=== PATIENT | male | born 1960 | race Caucasian/White ===

== ENCOUNTER → 2016-04-02 | Outpatient (CLI) | payer BC ==
--- NOTE | 2016-04-02 15:25 | Diagnostic Imaging Report ---
INDICATION: Right posterior knee pain. FINDINGS: Three views of the right knee show no fracture, dislocation or appreciable joint effusion. IMPRESSION: Negative right knee. Dictated by: Dictated on workstation # [id number]
== END ==
LOC: RAD 14:15
PROVIDERS: ATTEND Family Medicine
DX: M25.561 Pain in right knee (principal)
CPT/HCPCS: 73562

== ENCOUNTER 2017-09-01 18:39 | Emergency (ER) | payer BC ==
[~2017-09-01] VITALS: Ht 177.8 cm; Wt 90.7 kg
--- NOTE | 2017-09-01 18:57 | ED Fall/Injury ---
General Chief Complaint: Back Problems Stated Complaint: BACK/ RIB PAIN R SIDE AFTER FALL Source: patient Exam Limitations: no limitations History of Present Illness Date Seen by Provider: Sep 01, 2017 Time Seen by Provider: 18:44 Initial Comments PT ARRIVES VIA POV FROM HOME PT STATES HE IS REMODELING HIS KITCHEN, AND STEPPED ON A BOARD AND IT GAVE WAY, AND HE FELL, LANDING ON HIS RIGHT SIDE, HITTING HIS RIGHT POSTERIOR RIB AREA ON A FLOOR JOIST--DID NOT FALL THROUGH THE FLOOR, OR FROM A HEIGHT--FELL FROM STANDING POSITION ONTO A FLOOR JOIST OCCURRED AT 1500 TODAY NO SHORTNESS OF BREATH, JUST HURTS TO BREATHE WHEN HE LAYS DOWN, OR WITH TWISTING OR CERTAIN POSITIONS NO CHEST PAIN NO ABDOMINAL PAIN NO SPINE PAIN DID NOT HIT HEAD AND NO LOSS OF CONSCIOUSNESS NO EXTREMITY PAIN NO PARESTHESIAS OR MOTOR DEFICITS NO OPEN WOUNDS OR BRUISING HAS NOT TAKEN ANYTHING FOR PAIN Allergies and Home Medications Allergies Coded Allergies: No Known Drug Allergies (Unverified , 04/13/11) Home Medications Cyclobenzaprine HCl 10 Mg Tablet, 10 MG PO Q8H Prescribed by: JESSY VILLALOBOS on 09/01/171930 Meloxicam 15 Mg Tablet, 15 MG PO DAILY Prescribed by: JESSY VILLALOBOS on 09/01/171930 Tramadol HCl 50 Mg Tablet, 50 MG PO Q4H Prescribed by: JESSY VILLALOBOS on 09/01/171930 Patient Home Medication List Home Medication List Reviewed: Yes Review of Systems Constitutional: no symptoms reported Eyes: No Symptoms Reported Ears, Nose, Mouth, Throat: no symptoms reported Respiratory: no symptoms reported Cardiovascular: no symptoms reported Gastrointestinal: no symptoms reported Genitourinary: no symptoms reported Musculoskeletal: see HPI Skin: no symptoms reported Psychiatric/Neurological: No Symptoms Reported Past Svoxvqs-Gekfsc-Lhbfgb Hx Patient Social History Alcohol Use: Occasionally Uses Recreational Drug Use: No Smoking Status: Current Someday Smoker Type Used: Cigarettes Recent Foreign Travel: No Contact w/Someone Who Travel: No Recent Hopitalizations: No Immunizations Up To Date Tetanus Booster (TDap): Unknown Seasonal Allergies Seasonal Allergies: No Past Medical History Surgeries: No Respiratory: No Cardiac: No Neurological: No Genitourinary: No Gastrointestinal: No Musculoskeletal: No Endocrine: No HEENT: No Cancer: No Psychosocial: No Integumentary: No Blood Disorders: No Physical Exam Vital Signs Vital Signs - First Documented 09/01/17 18:49 Temp 97.8 Pulse 70 Resp 16 B/P (MAP) 152/97 (115) Pulse Ox 98 O2 Delivery Room Air Capillary Refill : General Appearance: WD/WN HEENT: PERRL/EOMI Neck: non-tender, full range of motion, supple, normal inspection Cardiovascular: normal peripheral pulses, regular rate, rhythm, no edema, no JVD, no murmur Respiratory: normal breath sounds, no respiratory distress, no accessory muscle use, other (TENDERNESS TO RIGHT POSTERIOR RIB AREA, JUST BELOW SCAPULA -- NO EXTERNAL EVIDENCE OF TRAUMA) Gastrointestinal: normal bowel sounds, non tender, soft, no organomegaly, no pulsatile mass Back: no vertebral tenderness, CVA tenderness (R); No decreased range of motion , No muscle spasm, No vertebral tenderness Extremities: normal range of motion, non-tender, normal inspection, no pedal edema, no calf tenderness, normal capillary refill 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, no motor/sensory deficits, alert, normal mood/affect, oriented x 3 Skin: normal color, warm/dry; No ecchymosis [place] Coma Score Best Eye Response: (4) Open Spontaneously Best Verbal Response: (5) Oriented Best Motor Response: (6) Obeys Commands Art Total: 15 Progress/Results/Core Measures Results/Orders My Orders Orders - JESSY VILLALOBOS DO Chest Pa/Lat (2 View) (09/01/17 18:50) Ribs, Right 2-3 Views (09/01/17 18:50) Vital Signs/I&O 09/01/17 09/01/17 18:49 19:37 Temp 97.8 97.8 Pulse 70 70 Resp 16 16 B/P (MAP) 152/97 (115) 152/97 (115) Pulse Ox 98 98 O2 Delivery Room Air Progress Progress Note : Progress Note PT DECLINES ANY PAIN MEDICATIONS IN ER. Diagnostic Imaging Comments CXR / RIGHT RIBS--NO ACUTE PROCESS, PER RADIOLOGIST REPORT @ 1925 Reviewed: Reviewed by Me Departure Impression Primary Impression: RIGHT RIB/CHEST WALL CONTUSION Additional Impression: S/P FALL FROM STANDING POSITION Disposition: 01 HOME, SELF-CARE Condition: Stable Departure-Patient Inst. Referrals: DAMIEN WILEY MD (PCP/Family) Primary Care Physician Patient Instructions: Bruised Rib (DC), RIB CONTUSION Add. Discharge Instructions: ICE TO SORE AREA AT 20 MINUTE INTERVALS FOR FIRST 2 DAYS, THEN ALTERNATE ICE AND HEAT AT 20 MINUTE INTERVALS NEEDED FOR PAIN ACTIVITIES TOLERATED FOLLOW UP WITH YOUR DR IN 7-10 DAYS IF NO BETTER RETURN TO ER IF WORSE All discharge instructions reviewed with patient and/or family. Voiced understanding. Scripts Tramadol HCl (Ultram) 50 Mg Tablet 50 MG PO Q4H, #20 TAB Prov: JESSY VILLALOBOS DO 09/01/17 Meloxicam (Mobic) 15 Mg Tablet 15 MG PO DAILY, #10 TAB Prov: JESSY VILLALOBOS DO 09/01/17 Cyclobenzaprine HCl (Cyclobenzaprine HCl) 10 Mg Tablet 10 MG PO Q8H, #15 TAB Prov: JESSY VILLALOBOS DO 09/01/17 JESSY VILLALOBOS DO Sep 01, 2017 18:57
--- NOTE | 2017-09-01 19:18 | Diagnostic Imaging Report ---
INDICATION: Fall, right rib pain. EXAMINATION: Two-view chest dated 09/01/2017. COMPARISON: 09/05/2014. FINDINGS: No displaced rib fracture is noted. No pneumothorax is seen. Lungs clear with no infiltrates or effusions. IMPRESSION: 1. No acute process. If pain persists, perhaps a rib series could better evaluate the osseous structures; however, no pneumothorax appreciated. Dictated by: Dictated on workstation # [id number]
--- NOTE | 2017-09-01 19:21 | Diagnostic Imaging Report ---
INDICATION: Patient fell on right ribs. Pain. EXAMINATION: Right rib series, 09/01/2017. FINDINGS: Three views of the right ribs. No displaced rib fractures appreciated. There is no pneumothorax. Remaining visualized osseous structures intact. IMPRESSION: 1. Unremarkable examination. Dictated by: Dictated on workstation # [id number]
[2017-09-01] MEDS ORDERED: TRAM-42 PO (19:31)
[2017-09-01] MEDS ORDERED: CYCL10TA9 PO (19:31)
[2017-09-01] MEDS ORDERED: MELO15TA14 PO (19:31)
[2017-09-01 19:37] VITALS: BP 152/97
== END 2017-09-01 19:37 | disposition home or self-care (01) ==
LOC: EDUNIT# 18:39 → ER 18:40
DX: S20.211A Contusion of right front wall of thorax, initial encounter (principal); R40.2142 Coma scale, eyes open, spontaneous, at arrival to emergency department; R40.2252 Coma scale, best verbal response, oriented, at arrival to emergency department; R40.2362 Coma scale, best motor response, obeys commands, at arrival to emergency department; F17.210 Nicotine dependence, cigarettes, uncomplicated; W18.31XA Fall on same level due to stepping on an object, initial encounter
CPT/HCPCS: 71046; 71100

== ENCOUNTER → 2018-11-27 | Outpatient (CLI) | payer BC ==
[~2018-11-27] MED LIST: CYCL10TA9 PO; MELO15TA14 PO; TRAM-42 PO
--- NOTE | 2018-11-27 15:12 | Diagnostic Imaging Report ---
PROCEDURE: US right lower extremity venous. TECHNIQUE: Multiple real-time grayscale images were obtained over the right lower extremity in various projections. Additional spectral analysis and color Doppler duplex images were also obtained. INDICATION: Pain and swelling. FINDINGS: There are no prior studies available for comparison. There is generally good blood flow and compressibility within the common femoral and superficial femoral veins; however, there is thrombosis of the popliteal vein. The posterior tibial and peroneal veins seem patent. IMPRESSION: 1. There is thrombus formation within the popliteal vein. 2. The remainder of the deep venous system is unremarkable for thrombus formation. 3. These results were called to Dr. Murphy by our sonologist. Dictated by: Dictated on workstation # [id number]
== END ==
LOC: RAD 14:10
PROVIDERS: ATTEND Family Medicine
DX: I82.431 Acute embolism and thrombosis of right popliteal vein (principal)

== ENCOUNTER 2018-12-04 16:18 | Emergency (ER) | payer BC ==
[~2018-12-04] VITALS: Ht 180.3 cm; Wt 93.1 kg
[2018-12-04] MEDS ORDERED: NS IV 1000 ML 1,000 ML IV ONE (16:52)
[2018-12-04 16:58] LABS: BASOPHILS % (AUTO) 0 % (0-10); EOSINOPHILS # (AUTO) 0.2 10^3/uL (0.0-0.3); EOSINOPHILS % (AUTO) 2 % (0-10); HEMATOCRIT 44 % (40-54); HEMOGLOBIN 15.3 G/DL (13.3-17.7); LYMPHOCYTES # (AUTO) 2.9 X 10^3 (1.0-4.0); LYMPHOCYTES % (AUTO) 31 % (12-44); MEAN CORPUSCULAR HEMOGLOBIN 32 PG (25-34); MEAN CORPUSCULAR HGB CONC 35 G/DL (32-36); MEAN CORPUSCULAR VOLUME 91 FL (80-99); MEAN PLATELET VOLUME 9.2 FL (7.4-10.4); MONOCYTES # (AUTO) 0.9 X 10^3 (0.0-1.0); MONOCYTES % (AUTO) 10 % (0-12); NEUTROPHILS # (AUTO) 5.3 X 10^3 (1.8-7.8); NEUTROPHILS % (AUTO) 57 % (42-75); PLATELET COUNT 328 10^3/uL (130-400); RED CELL DISTRIBUTION WIDTH 12.8 % (10.0-14.5); WHITE BLOOD COUNT 9.2 10^3/uL (4.3-11.0)
--- NOTE | 2018-12-04 17:02 | ED General ---
General Chief Complaint: Dizziness/Syncope Stated Complaint: DIZZY Nursing Triage Note: Pt to ED via EMS with c/o dizziness and weakness. Pt reports driving when symptoms occured. Pt went to [facility] and called EMS. Pt reports being diagnosed with a DVT behind the R knee last week. Pt denies pain at this time but reports pain in the R peters earlier in the day. EMS reports blood sugar of 99 and blood pressure of 169/103. Pt reports taking xarelto. Nursing Sepsis Screen: No Definite Risk Source of Information: Patient Exam Limitations: No Limitations History of Present Illness Date Seen by Provider: Dec 04, 2018 Time Seen by Provider: 16:45 Initial Comments Here with report of feeling off, shaky, weak and lightheaded. He apparently has recent history of right DVT and was started on Xarelto. He has been on that for a week and takes it as directed. Denies chest pain or breathing problems. Apparently he had tried to go to his doctor's office which was closed. He then decided to drive home and the weakness and lightheadedness hit. He pulled over and EMS was called and brought him here. Denies shortness of breath that is slightly tachycardic. 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 Did have pain in his right leg that suddenly stopped right before the lightheadedness began. Timing/Duration: 1 Hour Severity: Moderate Associated Systoms: No Chest Pain, No Fever/Chills, No Nausea/Vomiting, No Shortness of Air; Weakness Allergies and Home Medications Allergies Coded Allergies: No Known Drug Allergies (Unverified , 04/13/11) Home Medications Cyclobenzaprine HCl 10 Mg Tablet, 10 MG PO Q8H Prescribed by: JESSY VILLALOBOS on 09/01/171930 Meloxicam 15 Mg Tablet, 15 MG PO DAILY Prescribed by: JESSY VILLALOBOS on 09/01/171930 Tramadol HCl 50 Mg Tablet, 50 MG PO Q4H Prescribed by: JESSY VILLALOBOS on 09/01/171930 Patient Home Medication List Home Medication List Reviewed: Yes Review of Systems Review of Systems Constitutional: see HPI; No chills, No fever; weakness EENTM: no symptoms reported Respiratory: no symptoms reported Cardiovascular: see HPI; No syncope Gastrointestinal: No abdominal pain, No nausea, No vomiting Genitourinary: no symptoms reported Musculoskeletal: see HPI, muscle pain; No muscle stiffness, No muscle cramps Skin: no symptoms reported Psychiatric/Neurological: See HPI Hematologic/Lymphatic: See HPI, Blood Clots All Other Systems Reviewed Negative Unless Noted: Yes Past Kztcjrw-Nvvxud-Ssmsys Hx Past Med/Social Hx: Reviewed Nursing Past Med/Soc Hx Patient Social History Alcohol Use: Occasionally Uses Recreational Drug Use: No Type Used: Smokeless Tobacco Recent Foreign Travel: No Contact w/Someone Who Travel: No Recent Infectious Disease Expo: No Recent Hopitalizations: No Physical Abuse: No Sexual Abuse: No Immunizations Up To Date Tetanus Booster (TDap): Unknown Seasonal Allergies Seasonal Allergies: No Past Medical History Surgeries: No Respiratory: No Cardiac: No Neurological: No Genitourinary: No Gastrointestinal: No Musculoskeletal: No Endocrine: No HEENT: No Cancer: No Psychosocial: No Integumentary: No Blood Disorders: No Family Medical History Reviewed Nursing Family Hx Physical Exam Vital Signs Vital Signs - First Documented 12/04/18 16:20 Temp 36.6 Pulse 96 Resp 21 B/P (MAP) 168/116 (133) Pulse Ox 98 O2 Delivery Room Air Capillary Refill : Less Than 3 Seconds Height, Weight, BMI Height: 5'10.00" Weight: 200lbs. 0.0oz. 90.830442tl; 28.00 BMI Method:Stated General Appearance: No Apparent Distress, WD/WN HEENT: PERRL/EOMI, Pharynx Normal Neck: Non Tender, Supple Respiratory: Lungs Clear, Normal Breath Sounds Cardiovascular: No Murmur, Tachycardia Gastrointestinal: Non Tender, Soft Back: Normal Inspection, No CVA Tenderness, No Vertebral Tenderness Extremity: Normal Range of Motion, Non Tender Neurologic/Psychiatric: Alert, Oriented x3 Skin: Normal Color, Warm/Dry Progress/Results/Core Measures Suspected Sepsis Recent Fever Within 48 Hours: No Infection Criteria Present: None New/Unexplained Altered Menta: No Sepsis Screen: No Definite Risk SIRS Temperature: Pulse: 96 Respiratory Rate: 21 Laboratory Tests 12/04/18 16:20: White Blood Count 9.2 Blood Pressure 168 /116 Mean: 133 Laboratory Tests 12/04/18 16:20: Creatinine 1.19, Platelet Count 328, Total Bilirubin 0.4 Results/Orders Lab Results Laboratory Tests Test 12/04/18 16:20 Range/Units White Blood Count 9.2 4.3-11.0 10^3/uL Red Blood Count 4.79 4.35-5.85 10^6/uL Hemoglobin 15.3 13.3-17.7 G/DL Hematocrit 44 40-54 % Mean Corpuscular Volume 91 80-99 FL Mean Corpuscular Hemoglobin 32 25-34 PG Mean Corpuscular Hemoglobin Concent 35 32-36 G/DL Red Cell Distribution Width 12.8 10.0-14.5 % Platelet Count 328 130-400 10^3/uL Mean Platelet Volume 9.2 7.4-10.4 FL Neutrophils (%) (Auto) 57 42-75 % Lymphocytes (%) (Auto) 31 12-44 % Monocytes (%) (Auto) 10 0-12 % Eosinophils (%) (Auto) 2 0-10 % Basophils (%) (Auto) 0 0-10 % Neutrophils # (Auto) 5.3 1.8-7.8 X 10^3 Lymphocytes # (Auto) 2.9 1.0-4.0 X 10^3 Monocytes # (Auto) 0.9 0.0-1.0 X 10^3 Eosinophils # (Auto) 0.2 0.0-0.3 10^3/uL Basophils # (Auto) 0.0 0.0-0.1 10^3/uL Sodium Level 139 135-145 MMOL/L Potassium Level 5.4 H 3.6-5.0 MMOL/L Chloride Level 107 98-107 MMOL/L Carbon Dioxide Level 24 21-32 MMOL/L Anion Gap 8 5-14 MMOL/L Blood Urea Nitrogen 15 7-18 MG/DL Creatinine 1.19 0.60-1.30 MG/DL Estimat Glomerular Filtration Rate > 60 BUN/Creatinine Ratio 13 Glucose Level 95 70-105 MG/DL Calcium Level 8.9 8.5-10.1 MG/DL Corrected Calcium 8.8 8.5-10.1 MG/DL Total Bilirubin 0.4 0.1-1.0 MG/DL Aspartate Amino Transf (AST/SGOT) 47 H 5-34 U/L Alanine Aminotransferase (ALT/SGPT) 25 0-55 U/L Alkaline Phosphatase 109 40-136 U/L Troponin I < 0.028 <0.028 NG/ML Total Protein 8.0 6.4-8.2 GM/DL Albumin 4.1 3.2-4.5 GM/DL My Orders Orders - SHANE LEHMAN MD Ct Angio Chest W (12/04/18 16:52) Chest 1 View, Ap/Pa Only (12/04/18 16:52) Cbc With Automated Diff (12/04/18 16:52) Comprehensive Metabolic Panel (12/04/18 16:52) Troponin I (12/04/18 16:52) Ed Iv/Invasive Line Start (12/04/18 16:52) Ns Iv 1000 Ml (Sodium Chloride 0.9%) (12/04/18 16:52) Ekg Tracing (12/04/18 16:52) Iohexol Injection (Omnipaque 350 Mg/Ml 1 (12/04/18 17:30) Received Contrast (Hold Metformin- Contr (12/04/18 17:30) Ns (Ivpb) (Sodium Chloride 0.9% Ivpb Bag (12/04/18 17:30) Medications Given in ED Current Medications Medications Dose Ordered Sig/Kemi Route Start Time Stop Time Status Last Admin Dose Admin Iohexol 100 ml ONCE ONCE IV 12/04/18 17:30 12/04/18 17:31 DC 12/04/18 17:52 100 ML Sodium Chloride 100 ml ONCE ONCE IV 12/04/18 17:30 12/04/18 17:31 DC 12/04/18 17:52 80 ML Sodium Chloride 1,000 ml @ 0 mls/hr Q0M ONCE IV 12/04/18 16:52 12/04/18 16:54 DC 12/04/18 17:02 1,000 MLS/HR Vital Signs/I&O 12/04/18 16:20 Temp 36.6 Pulse 96 Resp 21 B/P (MAP) 168/116 (133) Pulse Ox 98 O2 Delivery Room Air Capillary Refill : Less Than 3 Seconds Blood Pressure Mean: 133 Progress Note : Progress Note Seen and evaluated. IV, labs, will saline 1 L bolus, chest x-ray, EKG and CT angiogram of the chest ordered. Monitor patient. 1809: CT angiogram completed and reviewed with the patient. I also discussed it with Dr. Wiley. He does have bilateral small to moderate lower pulmonary embolisms. Overall patient is feeling much better now and is walking without dizziness. Heart rate in the 60s to 70s. We did discuss at length regarding continuing Xarelto or switching the Eliquis. At this point we will go ahead and continue Xarelto. will see him tomorrow. I will send a copy of the chart to him. Patient is not hypoxic. He is a little hypertensive currently but this may be related to anxiety. He can have that rechecked at the office tomorrow as well. Discharged home with return precautions. Patient verbalize understanding instructions and agreement with plan. ECG Initial ECG Impression Date: Dec 04, 2018 Initial ECG Impression Time: 17:00 Initial ECG Rate: 79 Initial ECG Rhythm: Normal Sinus Comment Sinus rhythm with right bundle branch block. No evidence of ST elevation MT. No previous available for comparison. Interpreted by me. Diagnostic Imaging Diagonstic Imaging: CT Plain Films/CT/US/NM/MRI: chest Comments NAME: HAIDER SHEN [facility] REC#: [id number] PT STATUS: REG ER : 1960 PHYSICIAN: SHANE LEHMAN MD ADMIT DATE: 12/04/18/ER Draft Date of Exam:12/04/18 CT ANGIO CHEST W INDICATION: Dizziness and weakness, known deep vein thrombosis. TECHNIQUE: CTA chest obtained with IV contrast bolus and axial slices and MIP reconstructions. COMPARISON: There is no previous CTA for comparison. FINDINGS: Thoracic aorta shows no evidence of aneurysm or dissection. The great vessel origins are patent. There are no enlarged mediastinal or hilar nodes. There are no enlarged axillary nodes. Pulmonary parenchymal vessels show small to moderate emboli in the left lower lobe pulmonary arterial branches as well as a small embolus in the right lower lobe pulmonary arterial territory. There is no overt right heart strain. Visualized portions of the abdomen are unremarkable except for a tiny cyst in the right lobe of the liver. Lung parenchymal windows demonstrate no pulmonary parenchymal infiltrates or nodules. IMPRESSION: There are [id number] pulmonary emboli in the lower lobes on both sides. There is no other acute abnormality detected. Dictated on workstation # [id number] Dict: 12/04/18 1746 Trans: 12/04/18 1755 [id number] Interpreted by: YINA CRAWFORD MD Electronically signed by: Diagonstic Imaging: Xray Plain Films/CT/US/NM/MRI: chest Comments [facility], [facility]. [place], [place] NAME: HAIDER SHEN [facility] REC#: [id number] PT STATUS: REG ER : 1960 PHYSICIAN: SHANE LEHMAN MD ADMIT DATE: 12/04/18/ER Draft Date of Exam:12/04/18 CHEST 1 VIEW, AP/PA ONLY INDICATION: Weakness and fatigue, history of deep vein thrombosis. Frontal chest obtained at 5:24 p.m. FINDINGS: Heart and mediastinal silhouette are normal in appearance. The lungs appear clear. There is no pneumothorax or pleural fluid. IMPRESSION: No acute process visualized in the chest. Dictated on workstation # [id number] Dict: 12/04/18 1728 Trans: 12/04/18 1730 [id number] Interpreted by: YINA CRAWFORD MD Electronically signed by: Departure Impression Primary Impression: Bilateral pulmonary embolism Disposition: 01 HOME, SELF-CARE Condition: Improved Departure-Patient Inst. Decision time for Depature: 18:15 Referrals: DAMIEN WILEY MD (PCP/Family) Primary Care Physician Patient Instructions: Pulmonary Embolism (Blood Clot in the Lungs) (DC) Add. Discharge Instructions: All discharge instructions reviewed with patient and/or family. Voiced understanding. Follow-up with Dr. Wiley tomorrow. Call his office in the morning for appointment. Continue Xarelto as previously prescribed. Return for worse pain, fever, vomiting, weakness, breathing problems or other concerns as needed. It is very important that he stay adequately hydrated. Ensure that you drink plenty fluids and eat a normal diet. Copy Copies To 1: DAMIEN WILEY MD, TIMOTHY D MD Dec 04, 2018 17:02
[2018-12-04 17:11] LABS: ALANINE AMINOTRANSFERASE 25 U/L (0-55); ALBUMIN 4.1 GM/DL (3.2-4.5); ALKALINE PHOSPHATASE 109 U/L (40-136); BILIRUBIN,TOTAL 0.4 MG/DL (0.1-1.0); BUN/CREATININE RATIO 13; CALCIUM 8.9 MG/DL (8.5-10.1); CARBON DIOXIDE 24 MMOL/L (21-32); CHLORIDE 107 MMOL/L (98-107); CREATININE SERUM 1.19 MG/DL (0.60-1.30); GFR ESTIMATED > 60; GLUCOSE 95 MG/DL (70-105); POTASSIUM 5.4 MMOL/L (3.6-5.0); SODIUM 139 MMOL/L (135-145)
[2018-12-04] MEDS ORDERED: NS 100 ML (IVPB) BAG IV ONE (17:30)
[2018-12-04] MEDS ORDERED: HOLD METFORMIN - RECEIVED CONTRAST 20 ML VIAL IV SCH (17:30)
[2018-12-04] MEDS ORDERED: IOHEXOL 350 MG/ML 100 ML (OMNIPAQUE 350) VIAL IV ONE (17:30)
--- NOTE | 2018-12-04 17:31 | Diagnostic Imaging Report ---
INDICATION: Weakness and fatigue, history of deep vein thrombosis. Frontal chest obtained at 5:24 p.m. FINDINGS: Heart and mediastinal silhouette are normal in appearance. The lungs appear clear. There is no pneumothorax or pleural fluid. IMPRESSION: No acute process visualized in the chest. Dictated by: Dictated on workstation # [id number]
--- NOTE | 2018-12-04 17:56 | Diagnostic Imaging Report ---
INDICATION: Dizziness and weakness, known deep vein thrombosis. TECHNIQUE: CTA chest obtained with IV contrast bolus and axial slices and MIP reconstructions. COMPARISON: There is no previous CTA for comparison. FINDINGS: Thoracic aorta shows no evidence of aneurysm or dissection. The great vessel origins are patent. There are no enlarged mediastinal or hilar nodes. There are no enlarged axillary nodes. Pulmonary parenchymal vessels show small to moderate emboli in the left lower lobe pulmonary arterial branches as well as a small embolus in the right lower lobe pulmonary arterial territory. There is no overt right heart strain. Visualized portions of the abdomen are unremarkable except for a tiny cyst in the right lobe of the liver. Lung parenchymal windows demonstrate no pulmonary parenchymal infiltrates or nodules. IMPRESSION: There are [id number] pulmonary emboli in the lower lobes on both sides. There is no other acute abnormality detected. Dictated by: Dictated on workstation # [id number]
[2018-12-04 18:24] VITALS: BP 163/95
== END 2018-12-04 18:24 | disposition home or self-care (01) ==
LOC: EDUNIT# 16:18 → ER 16:19
DX: I26.99 Other pulmonary embolism without acute cor pulmonale (principal); Z79.01 Long term (current) use of anticoagulants
CPT/HCPCS: 36415; 71045; 71275; 80053; 84484; 85025; 93005

== ENCOUNTER 2018-12-15 20:12 | Emergency (ER) | payer BC ==
[~2018-12-15] VITALS: Ht 180.3 cm; Wt 90.0 kg
[2018-12-15] MEDS ORDERED: NS IV 1000 ML 1,000 ML IV ONE (21:09)
--- NOTE | 2018-12-15 21:12 | ED General ---
General Chief Complaint: General Problems/Pain Stated Complaint: BODYACHES Nursing Triage Note: pt complaint of not feeling "right" states hes short of breath, dizzy, shakey. pt verbalized started Xeralto for blood clots. states has not felt right since started. Nursing Sepsis Screen: No Definite Risk Source of Information: Patient, Spouse Exam Limitations: No Limitations History of Present Illness Date Seen by Provider: Dec 15, 2018 Time Seen by Provider: 21:12 Initial Comments 58-year-old male patient presents with complaints of "not feeling right" and states he has been intermittently short of breath, dizzy, lightheaded, and shaky for approximately 2 weeks. Patient was seen in the emergency department on 12/04/18 and diagnosed with bilateral and clothes on. At that time patient decided to continue on the Xarelto instead of changing to Eliquis. He was previously diagnosed with a DVT of the right lower extremity on 11/27/18. Patient is concerned that his symptoms have been caused by the Xarelto. Patient does reports starting back to work on Tuesday. He reports working in 2-3 hours on Tuesday and . states he then worked a full day at [employer] today. 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 Patient reports episodes last 2-5 minutes and occur multiple times throughout the day. Timing/Duration: Intermittent, Other (two-week onset) Modifying Factors: worse with Other (denies modifying factors. Patient reports episodes are self-limited.) Allergies and Home Medications Allergies Coded Allergies: No Known Drug Allergies (Unverified , 04/13/11) Home Medications Cyclobenzaprine HCl 10 Mg Tablet, 10 MG PO Q8H Prescribed by: JESSY VILLALOBOS on 09/01/171930 Meloxicam 15 Mg Tablet, 15 MG PO DAILY Prescribed by: JESSY VILLALOBOS on 09/01/171930 Tramadol HCl 50 Mg Tablet, 50 MG PO Q4H Prescribed by: JESSY VILLALOBOS on 09/01/171930 Patient Home Medication List Home Medication List Reviewed: Yes Review of Systems Review of Systems Constitutional: see HPI; No chills, No diaphoresis; dizziness; No fever; malaise, weakness EENTM: nose congestion; No ear pain, No blurred vision, No double vision, No eye pain, No hoarseness, No mouth pain, No epistaxis, No throat pain, No throat swelling Respiratory: see HPI; No cough, No dyspnea on exertion, No hemoptysis, No orthopnea, No phlegm; short of breath; No stridor, No wheezing Cardiovascular: No chest pain, No edema, No palpitations, No syncope Gastrointestinal: No abdominal pain, No constipation, No diarrhea, No dysphagia, No hematemesis, No heartburn; loss of appetite; No melena, No nausea, No vomiting Genitourinary: no symptoms reported Musculoskeletal: no symptoms reported Skin: no symptoms reported Psychiatric/Neurological: Denies Headache, Denies Numbness, Denies Paresthesia, Denies Tingling, Denies Weakness All Other Systems Reviewed Negative Unless Noted: Yes (Negative excepted noted.) Past Emhlssv-Jzzszi-Fyytud Hx Past Med/Social Hx: Reviewed and Corrections made Patient Social History Alcohol Use: Denies Use Recreational Drug Use: No Smoking Status: Never a Smoker Type Used: Smokeless Tobacco 2nd Hand Smoke Exposure: No Recent Foreign Travel: No Contact w/Someone Who Travel: No Recent Infectious Disease Expo: No Recent Hopitalizations: No Immunizations Up To Date Tetanus Booster (TDap): Unknown Seasonal Allergies Seasonal Allergies: No Past Medical History Surgeries: No Respiratory: Yes Pulmonary Embolism (diagnosed 12/04/18) Cardiac: Yes Deep Vein Thrombosis (diagnosed 11/27/18) Neurological: No Genitourinary: No Gastrointestinal: Yes Gastroesophageal Reflux Musculoskeletal: No Endocrine: No HEENT: No Cancer: No Psychosocial: No Integumentary: No Blood Disorders: No Family Medical History Reviewed Nursing Family Hx No Pertinent Family Hx Physical Exam Vital Signs Vital Signs - First Documented 12/15/18 20:36 Temp 36.6 Pulse 89 Resp 18 B/P (MAP) 168/112 (130) Pulse Ox 99 O2 Delivery Room Air Capillary Refill : Less Than 3 Seconds Height, Weight, BMI Height: 5'10.00" Weight: 200lbs. 0.0oz. [id number]; 27.00 BMI Method:Stated General Appearance: No Apparent Distress, WD/WN HEENT: PERRL/EOMI, TMs Normal, Normal ENT Inspection, Pharynx Normal Neck: Normal Inspection, Non Tender, Supple Respiratory: Lungs Clear, Normal Breath Sounds, No Accessory Muscle Use, No Respiratory Distress Cardiovascular: Regular Rate, Rhythm, No Edema, No Gallop, No JVD, No Murmur, Normal Peripheral Pulses Gastrointestinal: Normal Bowel Sounds, No Organomegaly, Non Tender, Soft; No Distended Back: Normal Inspection Extremity: Normal Capillary Refill, Non Tender, No Calf Tenderness, No Pedal Edema Neurologic/Psychiatric: Alert, Oriented x3, No Motor/Sensory Deficits, Normal Mood/Affect, 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 Skin: Normal Color, Warm/Dry Progress/Results/Core Measures Suspected Sepsis Recent Fever Within 48 Hours: No Infection Criteria Present: None New/Unexplained Altered Menta: No Sepsis Screen: No Definite Risk SIRS Temperature: Pulse: 89 Respiratory Rate: 18 Laboratory Tests 12/15/18 20:55: White Blood Count 8.5 Blood Pressure 168 /112 Mean: 130 Laboratory Tests 12/15/18 20:55: Creatinine 1.10, Platelet Count 215, Total Bilirubin 0.5 Results/Orders Lab Results Laboratory Tests Test 12/15/18 20:55 12/15/18 21:45 12/15/18 22:38 Range/Units White Blood Count 8.5 4.3-11.0 10^3/uL Red Blood Count 4.95 4.35-5.85 10^6/uL Hemoglobin 15.6 13.3-17.7 G/DL Hematocrit 45 40-54 % Mean Corpuscular Volume 91 80-99 FL Mean Corpuscular Hemoglobin 32 25-34 PG Mean Corpuscular Hemoglobin Concent 35 32-36 G/DL Red Cell Distribution Width 12.5 10.0-14.5 % Platelet Count 215 130-400 10^3/uL Mean Platelet Volume 9.5 7.4-10.4 FL Neutrophils (%) (Auto) 73 42-75 % Lymphocytes (%) (Auto) 20 12-44 % Monocytes (%) (Auto) 6 0-12 % Eosinophils (%) (Auto) 1 0-10 % Basophils (%) (Auto) 0 0-10 % Neutrophils # (Auto) 6.2 1.8-7.8 X 10^3 Lymphocytes # (Auto) 1.7 1.0-4.0 X 10^3 Monocytes # (Auto) 0.5 0.0-1.0 X 10^3 Eosinophils # (Auto) 0.1 0.0-0.3 10^3/uL Basophils # (Auto) 0.0 0.0-0.1 10^3/uL Sodium Level 139 135-145 MMOL/L Potassium Level 3.8 3.6-5.0 MMOL/L Chloride Level 105 98-107 MMOL/L Carbon Dioxide Level 23 21-32 MMOL/L Anion Gap 11 5-14 MMOL/L Blood Urea Nitrogen 12 7-18 MG/DL Creatinine 1.10 0.60-1.30 MG/DL Estimat Glomerular Filtration Rate > 60 BUN/Creatinine Ratio 11 Glucose Level 103 70-105 MG/DL Calcium Level 9.3 8.5-10.1 MG/DL Corrected Calcium 9.1 8.5-10.1 MG/DL Total Bilirubin 0.5 0.1-1.0 MG/DL Aspartate Amino Transf (AST/SGOT) 24 5-34 U/L Alanine Aminotransferase (ALT/SGPT) 26 0-55 U/L Alkaline Phosphatase 114 40-136 U/L Troponin I < 0.028 <0.028 NG/ML Total Protein 7.2 6.4-8.2 GM/DL Albumin 4.2 3.2-4.5 GM/DL Glucometer 105 70-110 MG/DL Urine Color YELLOW Urine Clarity CLEAR Urine pH 8 5-9 Urine Specific K[place]haw 1.015 L 1.016-1.022 Urine Protein NEGATIVE NEGATIVE Urine Glucose (UA) NEGATIVE NEGATIVE Urine Ketones NEGATIVE NEGATIVE Urine Nitrite NEGATIVE NEGATIVE Urine Bilirubin NEGATIVE NEGATIVE Urine Urobilinogen NORMAL NORMAL MG/DL Urine Leukocyte Esterase NEGATIVE NEGATIVE Urine RBC (Auto) NEGATIVE NEGATIVE Urine RBC 0-2 /HPF Urine WBC 0-2 /HPF Urine Crystals NONE /LPF Urine Bacteria NEGATIVE /HPF Urine Casts NONE /LPF Urine Mucus NEGATIVE /LPF Urine Culture Indicated NO My Orders Orders - ROSHNI YOUNG Ed Iv/Invasive Line Start (12/15/18 21:09) Ekg Tracing (12/15/18 21:09) Cbc With Automated Diff (12/15/18 21:09) Comprehensive Metabolic Panel (12/15/18 21:09) Troponin I (12/15/18 21:09) Ua Culture If Indicated (12/15/18 21:09) Ns Iv 1000 Ml (Sodium Chloride 0.9%) (12/15/18 21:09) Ct Angio Chest W (12/15/18 21:09) Ct Head Wo (12/15/18 21:09) Accucheck Stat ONCE (12/15/18 21:41) Iohexol Injection (Omnipaque 350 Mg/Ml 1 (12/15/18 22:00) Ns (Ivpb) (Sodium Chloride 0.9% Ivpb Bag (12/15/18 22:00) Famotidine Injection (Pepcid Injection) (12/15/18 23:33) Alprazolam Tablet (Xanax Tablet) (12/15/18 23:45) Medications Given in ED Current Medications Medications Dose Ordered Sig/Kemi Route Start Time Stop Time Status Last Admin Dose Admin Alprazolam 0.25 mg ONCE ONCE PO 12/15/18 23:45 12/15/18 23:46 DC 12/15/18 23:57 0.25 MG Iohexol 100 ml ONCE ONCE IV 12/15/18 22:00 12/15/18 22:01 DC 12/15/18 22:47 100 ML Sodium Chloride 80 ml ONCE ONCE IV 12/15/18 22:00 12/15/18 22:01 DC 12/15/18 22:48 80 ML Sodium Chloride 1,000 ml @ 0 mls/hr Q0M ONCE IV 12/15/18 21:09 12/15/18 21:12 DC 12/15/18 21:23 0 MLS/HR Vital Signs/I&O 12/15/18 20:36 Temp 36.6 Pulse 89 Resp 18 B/P (MAP) 168/112 (130) Pulse Ox 99 O2 Delivery Room Air 12/16/18 00:00 Intake Total 1000 ml Balance 1000 ml Capillary Refill : Less Than 3 Seconds Blood Pressure Mean: 130 ECG Initial ECG Impression Date: Dec 15, 2018 Initial ECG Impression Time: 21:33 Initial ECG Rate: 75 Initial ECG Rhythm: Normal Sinus Initial ECG Comparisson: Unchanged Diagnostic Imaging Diagonstic Imaging: CT Plain Films/CT/US/NM/MRI: head Comments CT HEAD WO Clinical indications: Patient started Xarelto 3 weeks ago for DVT. Patient developed dizziness, weakness and shakiness. Patient has loss of appetite. Exam: Axial CT scan of the brain without IV contrast . Auto Exposure Controls were utilized during the CT exam to meet ALARA standards for radiation dose reduction. Comparison: None. Findings: There is no evidence of acute cerebral infarct, intracranial hemorrhage, or gross mass effect. The brain parenchymal volume appears appropriate for patient's age. There is normal barrera- white matter distinction. There is no significant midline shift or herniation. There is no evidence of hydrocephalus. The basal cisterns are unremarkable. The skull, extracranial soft tissue, and orbits are unremarkable. There is mild left maxillary sinus disease. Temporal bones show no significant abnormality. Impression: There is mild left maxillary sinus disease. Otherwise, unremarkable CT scan of the brain for age. There is no intracranial hemorrhage. Dictated on workstation # [id number] Reviewed: Reviewed by Me (radiology report reviewed by me) Diagonstic Imaging: CT Plain Films/CT/US/NM/MRI: chest Comments normal CTA chest. no pulmonary embolism. Reviewed[facility] Primary Impression: Malaise and fatigue Additional Impressions: Pulmonary embolus Chronic sinusitis Disposition: HOME, SELF-CARE Condition: Improved Departure-Patient Inst. Decision time for Depature: 00:29 Referrals: DAMIEN WILEY MD (PCP/Family) Primary Care Physician Patient Instructions: Chronic Sinusitis, Fatigue (DC), Pulmonary Embolism (Blood Clot in the Lungs) (DC) Add. Discharge Instructions: All discharge instructions reviewed with patient and/or family. Voiced understanding. Medications as instructed. Continue usual home medications. Stay well hydrated. Alternate water and Gatorade. Avoid skipping meals during the day. Rest. Follow-up with Dr. Wiley as previously scheduled on Tuesday. Return immediately to the emergency department for worsened symptoms, chest pain, shortness of air, syncope, headache, changes in vision, slurred speech, confusion, vomiting, fever, or any other concerns. Scripts Famotidine (Pepcid) 20 Mg Tablet 20 MG PO BID, #30 TAB 0 Refills Prov: ROSHNI YOUNG 12/16/18 Alprazolam (Xanax) 0.25 Mg Tablet 0.25 MG PO Q6H PRN for ANXIETY, #10 TAB 0 Refills Prov: ROSHNI YOUNG 12/16/18 Cefdinir (Cefdinir) 300 Mg Capsule 300 MG PO BID, #14 CAP 0 Refills Prov: ROSHNI YOUNG 12/16/18 Work/School Note: Work Release Form Date Seen in the Emergency Department: Dec 16, 2018 Restrictions: Need Release from Doctor ROSHNI YOUNG Dec 15, 2018 21:12
[2018-12-15 21:19] LABS: BASOPHILS % (AUTO) 0 % (0-10); EOSINOPHILS # (AUTO) 0.1 10^3/uL (0.0-0.3); EOSINOPHILS % (AUTO) 1 % (0-10); HEMATOCRIT 45 % (40-54); HEMOGLOBIN 15.6 G/DL (13.3-17.7); LYMPHOCYTES # (AUTO) 1.7 X 10^3 (1.0-4.0); LYMPHOCYTES % (AUTO) 20 % (12-44); MEAN CORPUSCULAR HEMOGLOBIN 32 PG (25-34); MEAN CORPUSCULAR HGB CONC 35 G/DL (32-36); MEAN CORPUSCULAR VOLUME 91 FL (80-99); MEAN PLATELET VOLUME 9.5 FL (7.4-10.4); MONOCYTES # (AUTO) 0.5 X 10^3 (0.0-1.0); MONOCYTES % (AUTO) 6 % (0-12); NEUTROPHILS # (AUTO) 6.2 X 10^3 (1.8-7.8); NEUTROPHILS % (AUTO) 73 % (42-75); PLATELET COUNT 215 10^3/uL (130-400); RED CELL DISTRIBUTION WIDTH 12.5 % (10.0-14.5); WHITE BLOOD COUNT 8.5 10^3/uL (4.3-11.0)
[2018-12-15 21:33] LABS: ALANINE AMINOTRANSFERASE 26 U/L (0-55); ALBUMIN 4.2 GM/DL (3.2-4.5); ALKALINE PHOSPHATASE 114 U/L (40-136); BILIRUBIN,TOTAL 0.5 MG/DL (0.1-1.0); BUN/CREATININE RATIO 11; CALCIUM 9.3 MG/DL (8.5-10.1); CARBON DIOXIDE 23 MMOL/L (21-32); CHLORIDE 105 MMOL/L (98-107); GFR ESTIMATED > 60; GLUCOSE 103 MG/DL (70-105); POTASSIUM 3.8 MMOL/L (3.6-5.0); SODIUM 139 MMOL/L (135-145); TOTAL PROTEIN 7.2 GM/DL (6.4-8.2)
[2018-12-15] MEDS ORDERED: IOHEXOL 350 MG/ML 100 ML (OMNIPAQUE 350) VIAL IV ONE (22:00)
[2018-12-15] MEDS ORDERED: NS 100 ML (IVPB) BAG IV ONE (22:00)
--- NOTE | 2018-12-15 22:25 | Diagnostic Imaging Report ---
Clinical indications: Patient started Xarelto 3 weeks ago for DVT. Patient developed dizziness, weakness and shakiness. Patient has loss of appetite. Exam: Axial CT scan of the brain without IV contrast . Auto Exposure Controls were utilized during the CT exam to meet ALARA standards for radiation dose reduction. Comparison: None. Findings: There is no evidence of acute cerebral infarct, intracranial hemorrhage, or gross mass effect. The brain parenchymal volume appears appropriate for patient's age. There is normal barrera-white matter distinction. There is no significant midline shift or herniation. There is no evidence of hydrocephalus. The basal cisterns are unremarkable. The skull, extracranial soft tissue, and orbits are unremarkable. There is mild left maxillary sinus disease. Temporal bones show no significant abnormality. Impression: There is mild left maxillary sinus disease. Otherwise, unremarkable CT scan of the brain for age. There is no intracranial hemorrhage. Dictated by: Dictated on workstation # [id number]
[2018-12-15 22:47] LABS: BILIRUBIN,URINE NEGATIVE (NEGATIVE); CLARITY,URINE CLEAR; COLOR,URINE YELLOW; GLUCOSE, URINE (UA) NEGATIVE (NEGATIVE); KETONES,URINE NEGATIVE (NEGATIVE); LEUKOCYTE ESTERASE ,URINE NEGATIVE (NEGATIVE); NITRITE,URINE NEGATIVE (NEGATIVE); PH,URINE 8 (5-9); PROTEIN,URINE NEGATIVE (NEGATIVE)
[2018-12-15 23:12] LABS: BACTERIA,URINE NEGATIVE /HPF; RBC,URINE 0-2 /HPF; WBC,URINE 0-2 /HPF
[2018-12-15] MEDS ORDERED: FAMOTIDINE 20MG/2ML IV (PEPCID) IV STA (23:33)
[2018-12-15] MEDS ORDERED: ALPRAZolam 0.25 MG (XANAX) TAB PO ONE (23:45)
[2018-12-16] MEDS ORDERED: FAMO-119 PO (00:32)
[2018-12-16] MEDS ORDERED: ALPR0.25 PO (00:32)
[2018-12-16] MEDS ORDERED: CEFD300C3 PO (00:32)
[2018-12-16 00:36] VITALS: BP 141/81
--- NOTE | 2018-12-16 07:17 | Diagnostic Imaging Report ---
PROCEDURE: CT angiography of the chest with contrast. TECHNIQUE: Multiple contiguous axial images were obtained through the chest after uneventful bolus administration of intravenous contrast. 3D reconstructed CTA MIP acquisitions were also performed. Auto Exposure Controls were utilized during the CT exam to meet ALARA standards for radiation dose reduction. INDICATION: Dizziness, weakness and loss of appetite. FINDINGS: There are no primary nodules, masses, or infiltrates. There is no pleural or pericardial fluid. There is no pneumothorax. There is no pathologically enlarged adenopathy in the chest. The thoracic aorta is normal in caliber and without evidence of dissection. There are no filling defects seen within the pulmonary arteries to suggest a pulmonary embolism. The visualized intraabdominal structures are unremarkable. The osseous structures are unremarkable. IMPRESSION: No acute abnormality in the chest. Specifically, there is no evidence of a pulmonary embolism or aortic dissection. Dictated by: Dictated on workstation # [id number]
== END 2018-12-16 00:43 | disposition home or self-care (01) ==
LOC: EDUNIT# 20:12 → ER 20:13
DX: I26.99 Other pulmonary embolism without acute cor pulmonale (principal); R53.83 Other fatigue; J32.9 Chronic sinusitis, unspecified; Z79.01 Long term (current) use of anticoagulants; Z86.718 Personal history of other venous thrombosis and embolism
CPT/HCPCS: 36415; 70450; 71275; 80053; 81000; 82962; 84484; 85025; 93005; 93041

== ENCOUNTER 2019-01-05 10:09 | Outpatient (RCR) | payer BC ==
[~2019-01-05 10:09] MED LIST changes: +ALPR0.25 PO; +CEFD300C3 PO; +FAMO-119 PO
[2019-01-23] MEDS ORDERED: ALPR0.25 PO (16:52)
[2019-01-23] MEDS ORDERED: FAMO-119 PO (16:52)
[2019-01-23] MEDS ORDERED: PANT20TA2 PO (16:53)
== END 2019-04-05 | disposition home or self-care (01) ==
LOC: ONC 10:09
PROVIDERS: ATTEND Internal Medicine Hematology & Oncology
DX: I82.401 Acute embolism and thrombosis of unspecified deep veins of right lower extremity (principal); I26.99 Other pulmonary embolism without acute cor pulmonale; Z82.49 Family history of ischemic heart disease and other diseases of the circulatory system; Z79.899 Other long term (current) drug therapy
CPT/HCPCS: 36415; 81240; 81241; 99214

== ENCOUNTER 2019-01-23 14:51 | Emergency (ER) | payer BC ==
[~2019-01-23] VITALS: Ht 180 cm; Wt 86.4 kg
[2019-01-23] MEDS ORDERED: LIDOCAINE 2% VISCOUS 15 ML UDC PO ONE (15:30)
[2019-01-23] MEDS ORDERED: ANTACID SUSP 30 ML UDC (MYLANTA) PO ONE (15:30)
[2019-01-23] MEDS ORDERED: NS IV 1000 ML 1,000 ML IV SCH (15:30)
[2019-01-23] MEDS ORDERED: PANTOPRAZOLE 40 MG (PROTONIX) VIAL IV ONE (15:30)
[2019-01-23 15:35] LABS: BASOPHILS % (AUTO) 0 % (0-10); EOSINOPHILS % (AUTO) 0 % (0-10); HEMATOCRIT 42 % (40-54); HEMOGLOBIN 14.3 G/DL (13.3-17.7); LYMPHOCYTES # (AUTO) 1.4 X 10^3 (1.0-4.0); LYMPHOCYTES % (AUTO) 20 % (12-44); MEAN CORPUSCULAR HEMOGLOBIN 31 PG (25-34); MEAN CORPUSCULAR HGB CONC 34 G/DL (32-36); MEAN CORPUSCULAR VOLUME 90 FL (80-99); MEAN PLATELET VOLUME 9.1 FL (7.4-10.4); MONOCYTES # (AUTO) 0.7 X 10^3 (0.0-1.0); MONOCYTES % (AUTO) 10 % (0-12); NEUTROPHILS # (AUTO) 4.8 X 10^3 (1.8-7.8); NEUTROPHILS % (AUTO) 69 % (42-75); PLATELET COUNT 195 10^3/uL (130-400); RED CELL DISTRIBUTION WIDTH 12.5 % (10.0-14.5); WHITE BLOOD COUNT 6.9 10^3/uL (4.3-11.0)
[2019-01-23 15:36] LABS: BILIRUBIN,URINE NEGATIVE (NEGATIVE); CLARITY,URINE CLEAR; COLOR,URINE YELLOW; GLUCOSE, URINE (UA) NEGATIVE (NEGATIVE); KETONES,URINE NEGATIVE (NEGATIVE); LEUKOCYTE ESTERASE ,URINE NEGATIVE (NEGATIVE); NITRITE,URINE NEGATIVE (NEGATIVE); PROTEIN,URINE NEGATIVE (NEGATIVE)
[2019-01-23 15:48] LABS: BACTERIA,URINE TRACE /HPF; SQUAMOUS EPITHELIAL CELL,UR RARE /HPF
--- NOTE | 2019-01-23 15:54 | ED General ---
General Chief Complaint: General Problems/Pain Stated Complaint: WEAKNESS/NAUSEA Nursing Triage Note: Pt amb to room #6 with c/o weakness. 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 Pt state, "I just feel weak and like i'm going to pass out." Pt reports recent diagnosis of DVT & PE's. Nursing Sepsis Screen: No Definite Risk History of Present Illness Date Seen by Provider: Jan 23, 2019 Time Seen by Provider: 15:15 Initial Comments This is a 58 year old male that presents with complaints of generalized weakness and feeling like something is"boiling and bubbling" in his abdomen starting about 1400. Patient reports took a Xanax tablet and it didn't improve his symptoms. Patient reports having recent history of this and being evaluated here for similar. Patient reports that he was taking Pepcid was previously prescribed however, he stated that he has been taking sporadically. Patient rep orts that he is recently lost 12 pounds as he has not had an appetite and the boiling in his abdomen intensifies after eating. He was recently diagnosed with a DVT and PE. Had appt with Dr. Zeng and is awaiting some coagulopathy studies. He does feel the anxiety and stomach issues seem to go together. He is only using the Xanax if his anxiety gets really bad. His mother was diagnosed with Colon Ca at his current age. He had a Colonoscopy in 2011 that was clear. Timing/Duration: 1 Hour Severity: Mild Modifying Factors: worse with Movement; improves with Rest Associated Systoms: No Chest Pain, No Cough, No Diaphoresis, No Fever/Chills; Syncope, Weakness Allergies and Home Medications Allergies Coded Allergies: No Known Drug Allergies (Unverified , 04/13/11) Home Medications Alprazolam 0.25 Mg Tablet, 0.25 MG PO Q6H PRN for ANXIETY Prescribed by: ROSHNI YOUNG on 12/16/1831 Alprazolam 0.25 Mg Tablet, 0.25 MG PO TID Prescribed by: HIRAL CHAN on 01/23/191651 Cefdinir 300 Mg Capsule, 300 MG PO BID Prescribed by: ROSHNI YOUNG on 12/16/1831 Cyclobenzaprine HCl 10 Mg Tablet, 10 MG PO Q8H Prescribed by: JESSY VILLALOBOS on 09/01/171930 Famotidine 20 Mg Tablet, 20 MG PO BID Prescribed by: ROSHNI YOUNG on 12/16/1831 Famotidine 20 Mg Tablet, 20 MG PO BID Prescribed by: HIRAL CHAN on 01/23/191651 Meloxicam 15 Mg Tablet, 15 MG PO DAILY Prescribed by: JESSY VILLALOBOS on 09/01/171930 Pantoprazole Sodium 20 Mg Tablet.dr, 20 MG PO DAILY Prescribed by: HIRAL CHAN on 01/23/191652 Tramadol HCl 50 Mg Tablet, 50 MG PO Q4H Prescribed by: JESSY VILLALOBOS on 09/01/171930 Patient Home Medication List Home Medication List Reviewed: Yes Review of Systems Review of Systems Constitutional: no symptoms reported, see HPI EENTM: see HPI, no symptoms reported Respiratory: no symptoms reported, see HPI Cardiovascular: no symptoms reported, see HPI Gastrointestinal: no symptoms reported, see HPI Genitourinary: no symptoms reported, see HPI Musculoskeletal: no symptoms reported, see HPI Skin: no symptoms reported, see HPI Psychiatric/Neurological: See HPI, Anxiety Hematologic/Lymphatic: No Symptoms Reported, See HPI Immunological/Allergic: no symptoms reported, see HPI All Other Systems Reviewed Negative Unless Noted: Yes Past Igtquhu-[id number]-[id number] Hx Past Med/Social Hx: Reviewed Nursing Past Med/Soc Hx Patient Social History Alcohol Use: Denies Use Recreational Drug Use: No Smoking Status: Light Tobacco Smoker Type Used: Smokeless Tobacco 2nd Hand Smoke Exposure: No Recent Foreign Travel: No Contact w/Someone Who Travel: No Recent Infectious Disease Expo: No Recent Hopitalizations: No Physical Abuse: No Sexual Abuse: No Mistreated: No Fear: No Immunizations Up To Date Tetanus Booster (TDap): Unknown Seasonal Allergies Seasonal Allergies: No Past Medical History Surgeries: No Respiratory: Yes Pulmonary Embolism Cardiac: Yes (PE) Deep Vein Thrombosis Neurological: No Genitourinary: No Gastrointestinal: Yes Gastroesophageal Reflux Musculoskeletal: No Endocrine: No HEENT: No Cancer: No Psychosocial: No Integumentary: No Blood Disorders: No Family Medical History No Pertinent Family Hx Physical Exam Vital Signs Vital Signs - First Documented 01/23/19 15:08 Temp 36.5 Pulse 96 Resp 18 B/P (MAP) 154/96 (115) Pulse Ox 100 O2 Delivery Room Air Capillary Refill : Less Than 3 Seconds Height, Weight, BMI Height: 5'10.00" Weight: 200lbs. 0.0oz. [id number]; 26.00 BMI Method:Stated General Appearance: No Apparent Distress, WD/WN Eyes: Bilateral Eye Normal Inspection, Bilateral Eye PERRL HEENT: PERRL/EOMI, TMs Normal, Normal ENT Inspection, Pharynx Normal Neck: Full Range of Motion, Normal Inspection, Non Tender, Supple Respiratory: Chest Non Tender, Lungs Clear, Normal Breath Sounds, No Accessory Muscle Use, No Respiratory Distress Cardiovascular: Regular Rate, Rhythm, No Edema, No Gallop, No JVD, No Murmur, Normal Peripheral Pulses Gastrointestinal: Normal Bowel Sounds, No Organomegaly, No Pulsatile Mass, Non Tender, Soft Rectal: Deferred Back: Normal Inspection, No CVA Tenderness, No Vertebral Tenderness Extremity: Normal Capillary Refill, Normal Inspection, Normal Range of Motion, Non Tender Neurologic/Psychiatric: Alert, Oriented x3, No Motor/Sensory Deficits, office agent II- XII Norm as Tested Skin: Normal Color, Warm/Dry Lymphatic: No Adenopathy Progress/Results/Core Measures Suspected Sepsis Recent Fever Within 48 Hours: No Infection Criteria Present: None New/Unexplained Altered Menta: No Sepsis Screen: No Definite Risk SIRS Temperature: Pulse: 96 Respiratory Rate: 18 Laboratory Tests 01/23/19 15:20: White Blood Count 6.9 Blood Pressure 154 /96 Mean: 115 Laboratory Tests 01/23/19 15:20: Creatinine 1.22, INR Comment 1.2, Platelet Count 195, Total Bilirubin 0.7 Results/Orders Lab Results Laboratory Tests Test 01/23/19 15:20 Range/Units White Blood Count 6.9 4.3-11.0 10^3/uL Red Blood Count 4.62 4.35-5.85 10^6/uL Hemoglobin 14.3 13.3-17.7 G/DL Hematocrit 42 40-54 % Mean Corpuscular Volume 90 80-99 FL Mean Corpuscular Hemoglobin 31 25-34 PG Mean Corpuscular Hemoglobin Concent 34 32-36 G/DL Red Cell Distribution Width 12.5 10.0-14.5 % Platelet Count 195 130-400 10^3/uL Mean Platelet Volume 9.1 7.4-10.4 FL Neutrophils (%) (Auto) 69 42-75 % Lymphocytes (%) (Auto) 20 12-44 % Monocytes (%) (Auto) 10 0-12 % Eosinophils (%) (Auto) 0 0-10 % Basophils (%) (Auto) 0 0-10 % Neutrophils # (Auto) 4.8 1.8-7.8 X 10^3 Lymphocytes # (Auto) 1.4 1.0-4.0 X 10^3 Monocytes # (Auto) 0.7 0.0-1.0 X 10^3 Eosinophils # (Auto) 0.0 0.0-0.3 10^3/uL Basophils # (Auto) 0.0 0.0-0.1 10^3/uL Prothrombin Time 16.1 H 12.2-14.7 SEC INR Comment 1.2 0.8-1.4 Activated Partial Thromboplast Time 30 24-35 SEC Urine Color YELLOW Urine Clarity CLEAR Urine pH 6.0 5-9 Urine Specific [place] 1.015 L 1.016-1.022 Urine Protein NEGATIVE NEGATIVE Urine Glucose (UA) NEGATIVE NEGATIVE Urine Ketones NEGATIVE NEGATIVE Urine Nitrite NEGATIVE NEGATIVE Urine Bilirubin NEGATIVE NEGATIVE Urine Urobilinogen 0.2 < = 1.0 MG/DL Urine Leukocyte Esterase NEGATIVE NEGATIVE Urine RBC (Auto) NEGATIVE NEGATIVE Urine RBC NONE /HPF Urine WBC NONE /HPF Urine Squamous Epithelial Cells RARE /HPF Urine Crystals NONE /LPF Urine Bacteria TRACE /HPF Urine Casts NONE /LPF Urine Mucus SMALL H /LPF Urine Culture Indicated NO Sodium Level 138 135-145 MMOL/L Potassium Level 3.9 3.6-5.0 MMOL/L Chloride Level 106 98-107 MMOL/L Carbon Dioxide Level 23 21-32 MMOL/L Anion Gap 9 5-14 MMOL/L Blood Urea Nitrogen 12 7-18 MG/DL Creatinine 1.22 0.60-1.30 MG/DL Estimat Glomerular Filtration Rate > 60 BUN/Creatinine Ratio 10 Glucose Level 123 H 70-105 MG/DL Calcium Level 9.0 8.5-10.1 MG/DL Corrected Calcium 9.2 8.5-10.1 MG/DL Magnesium Level 1.9 1.6-2.4 MG/DL Total Bilirubin 0.7 0.1-1.0 MG/DL Aspartate Amino Transf (AST/SGOT) 20 5-34 U/L Alanine Aminotransferase (ALT/SGPT) 22 0-55 U/L Alkaline Phosphatase 73 40-136 U/L Myoglobin 43.1 10.0-92.0 NG/ML Troponin I < 0.028 <0.028 NG/ML Total Protein 6.2 L 6.4-8.2 GM/DL Albumin 3.8 3.2-4.5 GM/DL Amylase Level 79 25-125 U/L Lipase 24 8-78 U/L My Orders Orders - HIRAL CHAN [employer] Cbc With Automated Diff (01/23/19 15:16) Magnesium (01/23/19 15:16) Ekg Tracing (01/23/19 15:16) Comprehensive Metabolic Panel (01/23/19 15:16) Myoglobin Serum (01/23/19 15:16) Protime With Inr (01/23/19 15:16) Partial Thromboplastin Time (01/23/19 15:16) Monitor-Rhythm Ecg Trace Only (01/23/19 15:16) Ed Iv/Invasive Line Start (01/23/19 15:16) Lipase (01/23/19 15:16) Amylase (01/23/19 15:16) Troponin I (01/23/19 15:16) Ua Culture If Indicated (01/23/19 15:17) Ns Iv 1000 Ml (Sodium Chloride 0.9%) (01/23/19 15:30) Lidocaine 2% Viscous 15 Ml (Xylocaine Vi (01/23/19 15:30) Antacid Suspension (Mylanta Suspension (01/23/19 15:30) Ed Iv/Invasive Line Start (01/23/19 15:30) Pantoprazole Injection (Protonix Injecti (01/23/19 15:30) Medications Given in ED Current Medications Medications Dose Ordered Sig/Kemi Route Start Time Stop Time Status Last Admin Dose Admin Al Hydrox/Mg Hydrox/Simethicone 30 ml ONCE ONCE PO 01/23/19 15:30 01/23/19 15:32 DC 01/23/19 15:38 30 ML Lidocaine HCl 15 ml ONCE ONCE PO 01/23/19 15:30 01/23/19 15:32 DC 01/23/19 15:38 15 ML Pantoprazole 40 mg ONCE ONCE IV 01/23/19 15:30 01/23/19 15:32 DC 01/23/19 15:39 40 MG Vital Signs/I&O 01/23/19 01/23/19 15:08 17:11 Temp 36.5 36.5 Pulse 96 71 Resp 18 18 B/P (MAP) 154/96 (115) 132/82 (115) Pulse Ox 100 100 O2 Delivery Room Air Room Air Capillary Refill : Less Than 3 Seconds Blood Pressure Mean: 115 POS Progress Note : Time: 15:15 Progress Note Patient seen and evaluated, will obtain labs and reevaluation. Normal saline 1 L per IV and GI cocktail. His reports he had an appt with Dr. Murphy at 1600 today but he wanted to come here. Coagulopathy studies from Dr. Zeng Negative, results given to patient and his . 1545 patient reports some improvement in the stomach symptoms. The questions that this could be related to his gallbladder. He has no right upper quadrant pain and negative Giron sign, no change in stool color. 1615 Spoke at length to the patient, labs are all normal, there is no indication for diagnostic studies at this time. He will follow-up with Dr. Murphy early next week, can consider diagnostic imaging at that time if indicated. 1630 Patient will take his Xanax routinely over the next 3-5 days, Use Pepcid and Protonix for his stomach, He is agreeable to this. To follow up with Dr. Murphy, may need intermediate card tender SSRI for anxiety. Discharge instructions and return precautions reviewed with the patient and his . All questions answered. ECG Initial ECG Impression Date: Jan 23, 2019 Initial ECG Impression Time: 15:12 Initial ECG Rate: 88 Initial ECG Rhythm: Normal Sinus Initial ECG Intervals: Normal Initial ECG Intervals OH 176, QRSD 138, QT 372, QTC 450. [place] P 44, QRS 69, T 38. Initial ECG Impression: Normal Initial ECG Comparisson: Unchanged Comment Reviewed with Dr. Escobar and agreed. Departure Impression Primary Impression: GERD (gastroesophageal reflux disease) Qualified Codes: K21.9 - Gastro-esophageal reflux disease without esophagitis Additional Impression: Anxiety Disposition: 01 HOME, SELF-CARE Condition: Improved Departure-Patient Inst. Decision time for Depature: 16:30 Referrals: DAMIEN MURPHY MD (PCP/Family) Primary Care Physician Patient Instructions: Generalized Weakness (DC) Add. Discharge Instructions: Take the Pepcid twice daily and Protonix once daily. Continue to walk, daily. Activity and diet as tolerated. Your lab work from today were normal. It was not felt that diagnostic imaging was needed, given the labs and the recent imaging that was completed. If symptoms worsen, Dr. Murphy can order outpatient studies next week. Take your Xanax every 8 hours, until your follow up with Dr. Murphy Follow up with Dr. Murphy for management of care, early next week. Return to emergency department for any new emergent conditions or concerns. All discharge instructions reviewed with patient and/or family. Voiced understanding. Scripts Pantoprazole Sodium (Protonix) 20 Mg Tablet.dr 20 MG PO DAILY, #20 TAB 0 Refills Prov: HIRAL CHAN 01/23/19 Famotidine (Pepcid) 20 Mg Tablet 20 MG PO BID, #40 TAB 0 Refills Prov: HIRAL CHAN 01/23/19 Alprazolam (Xanax) 0.25 Mg Tablet 0.25 MG PO TID, #20 TAB 0 Refills Prov: HIRAL CHAN 01/23/19 Copy Copies To 1: DAMIEN MURPHY MD, AMY ARNP Jan 23, 2019 15:54 POS
[2019-01-23 16:00] LABS: INR 1.2 (0.8-1.4); PROTHROMBIN TIME PATIENT 16.1 SEC (12.2-14.7)
[2019-01-23 16:04] LABS: ALANINE AMINOTRANSFERASE 22 U/L (0-55); ALBUMIN 3.8 GM/DL (3.2-4.5); ALKALINE PHOSPHATASE 73 U/L (40-136); AMYLASE 79 U/L (25-125); BILIRUBIN,TOTAL 0.7 MG/DL (0.1-1.0); BUN/CREATININE RATIO 10; CARBON DIOXIDE 23 MMOL/L (21-32); CHLORIDE 106 MMOL/L (98-107); CREATININE SERUM 1.22 MG/DL (0.60-1.30); GFR ESTIMATED > 60; GLUCOSE 123 MG/DL (70-105); LIPASE 24 U/L (8-78); MAGNESIUM 1.9 MG/DL (1.6-2.4); POTASSIUM 3.9 MMOL/L (3.6-5.0); SODIUM 138 MMOL/L (135-145); TOTAL PROTEIN 6.2 GM/DL (6.4-8.2)
[2019-01-23] MEDS ORDERED: FAMO-119 PO (16:52)
[2019-01-23] MEDS ORDERED: ALPR0.25 PO (16:52)
[2019-01-23] MEDS ORDERED: PANT20TA2 PO (16:53)
[2019-01-23 17:11] VITALS: BP 132/82
== END 2019-01-23 17:11 | disposition home or self-care (01) ==
LOC: EDUNIT# 14:51 → ER 14:54
DX: K21.9 Gastro-esophageal reflux disease without esophagitis (principal); F41.9 Anxiety disorder, unspecified; Z86.711 Personal history of pulmonary embolism; Z86.718 Personal history of other venous thrombosis and embolism
CPT/HCPCS: 36415; 80053; 81000; 82150; 83690; 83735; 83874; 84484; 85025; 85610; 85730; 93005; 93041; 96361; 96374

== ENCOUNTER → 2019-04-10 | Outpatient (CLI) | payer BC ==
[~2019-04-10] MED LIST changes: +PANT20TA2 PO
--- NOTE | 2019-04-10 13:02 | Diagnostic Imaging Report ---
INDICATION: Heel pain. TECHNIQUE: Three views of the left ankle were obtained. FINDINGS: The alignment is normal. The plafond and talar dome are intact. The ankle mortise is symmetric. There is no fracture or dislocation. IMPRESSION: No acute fracture or dislocation. Dictated by: Dictated on workstation # [id number]
== END ==
LOC: RAD 11:46
PROVIDERS: ATTEND Family Medicine
DX: M79.672 Pain in left foot (principal)
CPT/HCPCS: 73610

== ENCOUNTER 2019-06-29 10:58 | Outpatient (RCR) | payer BC ==
[2019-05-01 14:56] LABS: BASOPHILS % (AUTO) 0 % (0-10); EOSINOPHILS # (AUTO) 0.1 10^3/uL (0.0-0.3); EOSINOPHILS % (AUTO) 2 % (0-10); HEMATOCRIT 42 % (40-54); HEMOGLOBIN 14.7 G/DL (13.3-17.7); LYMPHOCYTES % (AUTO) 32 % (12-44); MEAN CORPUSCULAR HEMOGLOBIN 32 PG (25-34); MEAN CORPUSCULAR HGB CONC 35 G/DL (32-36); MEAN CORPUSCULAR VOLUME 91 FL (80-99); MEAN PLATELET VOLUME 8.9 FL (7.4-10.4); MONOCYTES # (AUTO) 0.6 X 10^3 (0.0-1.0); MONOCYTES % (AUTO) 9 % (0-12); NEUTROPHILS # (AUTO) 3.4 X 10^3 (1.8-7.8); NEUTROPHILS % (AUTO) 57 % (42-75); PLATELET COUNT 191 10^3/uL (130-400); RED CELL DISTRIBUTION WIDTH 12.3 % (10.0-14.5); WHITE BLOOD COUNT 6.1 10^3/uL (4.3-11.0)
[2019-05-01 15:17] LABS: ALANINE AMINOTRANSFERASE 28 U/L (0-55); ALBUMIN 3.8 GM/DL (3.2-4.5); ALKALINE PHOSPHATASE 76 U/L (40-136); BILIRUBIN,TOTAL 0.6 MG/DL (0.1-1.0); BUN/CREATININE RATIO 15; CARBON DIOXIDE 23 MMOL/L (21-32); CHLORIDE 107 MMOL/L (98-107); CREATININE SERUM 1.15 MG/DL (0.60-1.30); GFR ESTIMATED > 60; GLUCOSE 86 MG/DL (70-105); POTASSIUM 4.3 MMOL/L (3.6-5.0); SODIUM 138 MMOL/L (135-145); TOTAL PROTEIN 6.4 GM/DL (6.4-8.2)
== END 2019-07-30 | disposition home or self-care (01) ==
LOC: ONC 10:58
PROVIDERS: ATTEND Internal Medicine Hematology & Oncology
DX: I82.431 Acute embolism and thrombosis of right popliteal vein (principal); I26.99 Other pulmonary embolism without acute cor pulmonale; Z82.49 Family history of ischemic heart disease and other diseases of the circulatory system; Z79.899 Other long term (current) drug therapy; Z83.2 Family history of diseases of the blood and blood-forming organs and certain disorders involving the immune mechanism
CPT/HCPCS: 80053; 82784; 85025; 85300; 85302; 85305; 85610; 85613; 85705; 85730; 86146; 86147; 99213

== ENCOUNTER 2019-08-27 05:30 | Outpatient (RCR) | payer BC ==
[~2019-08-27] VITALS: Ht 177 cm; Wt 95.4 kg
[~2019-08-27 05:30] MED LIST changes: +SERT50TA2 PO
== END 2019-08-27 09:48 | disposition home or self-care (01) ==
LOC: PREOP 05:30
PROVIDERS: ATTEND Surgery
DX: Z01.812 Encounter for preprocedural laboratory examination (principal); Z20.828 Contact with and (suspected) exposure to other viral communicable diseases; Z86.010 Personal history of colon polyps
CPT/HCPCS: 87635

== ENCOUNTER 2019-08-29 10:01 | Day surgery (SDC) | payer BC ==
[2019-08-29] VITALS (15 sets, daily range): BP systolic 112–145; BP diastolic 64–88
[~2019-08-29] VITALS: Ht 177 cm; Wt 95.4 kg
[2019-08-29] MEDS ORDERED: NS IV 500 ML 500 ML IV PRN (10:03)
[2019-08-29] MEDS ORDERED: NS IV 500 ML 500 ML ONE (10:05)
[2019-08-29] MEDS ORDERED: fentaNYL INJECTION 100 MCG/2 ML AMP IVP ONE (10:15)
[2019-08-29] MEDS ORDERED: LIDOCAINE JELLY 2% 6 ML SYRINGE MM PRN (10:15)
--- OUTSIDE RECORDS SUMMARY | 2019-08-29 10:48 | XMS REPORT | Continuity of Care Document ---
Author Organization Unknown Address Unknown Phone Unavailable Allergies Active Description Code Type Severity Reaction Onset Reported/Identified Relationship to Patient Clinical Status Yes No Known Drug Allergies [id number] Drug Allergy Unknown N/A 08/23/2019 Medications There is no data. Problems Date Dx Coded Attending Type Code Diagnosis Diagnosed By 04/12/2011 Ot V12.72 PER MALORIE HISTORY OF COLONIC POLYPS 04/12/2011 Ot V16.0 FAMI LY HX-GI MALIGNANCY 04/12/2011 Ot V76.51 SCR EEN MAL NEOP- COLON 09/19/2014 DAMIEN WILEY MD Ot 786. 2 11/07/2014 DAMIEN WILEY MD Ot 786. 2 04/02/2016 DAMIEN WILEY MD Ot 786. 2 COUGH 04/05/2016 DAMIEN WILEY MD Ot M25.561 PAIN IN RIGHT KNEE 04/08/2016 DAMIEN WILEY MD Ot M25.561 PAIN IN RIGHT KNEE 04/14/2016 INEZ DODGE, DAMIEN Brown Ot M25.561 PAIN IN RIGHT KNEE 09/01/2017 JESSY VILLALOBOS DO Ot F17.210 NICOTINE DEPENDENCE, CIGARETTES, UNCOMPL 09/01/2017 JESSY VILLALOBOS DO Ot M54.9 DORSALGIA, UNSPECIFIED 09/01/2017 JESSY VILLALOBOS DO Ot R40.214 2 COMA SCALE, EYES OPEN, SPONTANEOUS, EMR 09/01/2017 JESSY VILLALOBOS DO Ot R40.225 2 COMA SCALE, BEST VERBAL RESPONSE, ORIENT 09/01/2017 JESSY VILLALOBOS DO Ot R40.236 2 COMA SCALE, BEST MOTOR RESPONSE, OBEYS C 09/01/2017 JESSY VILLALOBOS DO Ot S20.211 A CONTUSION OF RIGHT FRONT WALL OF THORAX, 09/01/2017 JESSY VILLALOBOS DO Ot W18.31X A FALL ON SAME LEVEL DUE TO STEPPING ON AN 09/05/2017 JESSY VILLALOBOS DO Ot F17.210 NICOTINE DEPENDENCE, CIGARETTES, UNCOMPL 09/05/2017 JESSY VILLALOBOS DO Ot M54.9 DORSALGIA, UNSPECIFIED 09/05/2017 JESSY VILLALOBOS DO Ot R40.214 2 COMA SCALE, EYES OPEN, SPONTANEOUS, EMR 09/05/2017 JESSY VILLALOBOS DO Ot R40.225 2 COMA SCALE, BEST VERBAL RESPONSE, ORIENT 09/05/2017 JESSY VILLALOBOS DO Ot R40.236 2 COMA SCALE, BEST MOTOR RESPONSE, OBEYS C 09/05/2017 JESSY VILLALOBOS DO Ot S20.211 A CONTUSION OF RIGHT FRONT WALL OF THORAX, 09/05/2017 JESSY VILLALOBOS DO Ot W18.31X A FALL ON SAME LEVEL DUE TO STEPPING ON AN 12/03/2018 DAMIEN WILEY MD Ot I82.431 ACUTE EMBOLISM AND THROMBOSIS OF RIGHT P 12/04/2018 SHANE LEHMAN MD Ot I26.99 OTHER PULMONARY EMBOLISM WITHOUT ACUTE C 12/04/2018 SHANE LEHMAN MD, Ot R42 DIZZINESS AND GIDDINESS 12/04/2018 SHANE LEHMAN MD Ot Z79.01 PLANNING LEAD (CURRENT) USE OF ANTICOAGULANT 12/05/2018 DAMIEN WILEY MD Ot 786. 2 COUGH 12/05/2018 DAMIEN WILEY MD Ot M25.561 PAIN IN RIGHT KNEE 12/05/2018 DAMIEN WILEY MD Ot I82.431 ACUTE EMBOLISM AND THROMBOSIS OF RIGHT P 12/08/2018 SHANE LEHMAN MD Ot I26.99 OTHER PULMONARY EMBOLISM WITHOUT ACUTE C 12/08/2018 SHANE LEHMAN MD Ot R42 DIZZINESS AND GIDDINESS 12/08/2018 SHANE LEHMAN MD Ot Z79.01 HALF-WAY (CURRENT) USE OF ANTICOAGULANT 12/13/2018 SHANE LEHMAN MD Ot I26.99 OTHER PULMONARY EMBOLISM WITHOUT ACUTE C 12/13/2018 SHANE LEHMAN MD Ot R42 DIZZINESS AND GIDDINESS 12/13/2018 SHANE LEHMAN MD Ot Z79.01 PLANNING LEAD (CURRENT) USE OF ANTICOAGULANT 12/16/2018 ROSHNI VIDALES Ot I26.99 OTHER PULMONARY EMBOLISM WITHOUT ACUTE C 12/16/2018 ROSHNI VIDALES Ot J32.9 CHRONIC SINUSITIS, UNSPECIFIED 12/16/2018 HANNAH PEREZROSHNI Amy Ot R53.83 OTHER FATIGUE 12/16/2018 HANNAH PEREZROSHNI Amy Ot Z79.01 HALF-WAY (CURRENT) USE OF ANTICOAGULANT 12/16/2018 HANNAH PEREZROSHNI Amy Ot Z86.718 PERSONAL HISTORY OF OTHER VENOUS THROMBO 12/18/2018 HANNAH PEREZ ROSHNI Amy Ot I26.99 OTHER PULMONARY EMBOLISM WITHOUT ACUTE C 12/18/2018 HANNAH PEREZ ROSHNI Amy Ot J32.9 CHRONIC SINUSITIS, UNSPECIFIED 12/18/2018 HANNAH PEREZROSHNI Amy Ot R53.83 OTHER FATIGUE 12/18/2018 HANNAH PEREZROSHNI Amy Ot Z79.01 PLANNING LEAD (CURRENT) USE OF ANTICOAGULANT 12/18/2018 HANNAH PEREZ ROSHNI L Ot Z86.718 PERSONAL HISTORY OF OTHER VENOUS THROMBO 12/20/2018 DAMIEN WILEY MD Ot I82.431 ACUTE EMBOLISM AND THROMBOSIS OF RIGHT P 01/05/2019 DAMIEN WILEY MD Ot 786. 2 COUGH 01/05/2019 DAMIEN WILEY MD Ot M25.561 PAIN IN RIGHT KNEE 01/05/2019 DAMIEN WILEY MD Ot I82.431 ACUTE EMBOLISM AND THROMBOSIS OF RIGHT P 01/23/2019 HIRAL CHANP Ot F41.9 ANXIETY DISORDER, UNSPECIFIED 01/23/2019 DUSTIN HIRAL ROUTE CARRIER Ot K21.9 GASTRO-ESOPHAGEAL REFLUX DISEASE WITHOUT 01/23/2019 DUSTINHIRAL Clifford ROUTE CARRIER Ot R11.0 NAUSEA 01/23/2019 HIRAL CHAN ROUTE CARRIER Ot Z86.711 PERSONAL HISTORY OF PULMONARY EMBOLISM 01/23/2019 DSUTIN HIRAL ROUTE CARRIER Ot Z86.718 PERSONAL HISTORY OF OTHER VENOUS THROMBO 01/26/2019 DUSTIN, HIRAL ROUTE CARRIER Ot F41.9 ANXIETY DISORDER, UNSPECIFIED 01/26/2019 DUSTIN, HIRAL ROUTE CARRIER Ot K21.9 GASTRO-ESOPHAGEAL REFLUX DISEASE WITHOUT 01/26/2019 DUSTIN, HIRAL ROUTE CARRIER Ot R11.0 NAUSEA 01/26/2019 DUSTIN HIRAL ROUTE CARRIER Ot Z86.711 PERSONAL HISTORY OF PULMONARY EMBOLISM 01/26/2019 HIRAL CHAN ROUTE CARRIER Ot Z86.718 PERSONAL HISTORY OF OTHER VENOUS THROMBO 04/05/2019 MARIE LEIJA N Ot I26.99 OTHER PULMONARY EMBOLISM WITHOUT ACUTE C 04/05/2019 LISSMARIE N Ot I82.401 ACUTE EMBOLISM AND THOMBOS UNSP DEEP VEI 04/05/2019 LISS, RAMIROAN N Ot Z79.899 OTHER HALF-WAY (CURRENT) DRUG THERAPY 04/05/2019 LISS BOBAN N Ot Z82.49 FAMILY HX OF ISCHEM HEART DIS AND OTH DI 04/06/2019 LISSMARIE N Ot I26.99 OTHER PULMONARY EMBOLISM WITHOUT ACUTE C 04/06/2019 LISSMARIE N Ot I82.401 ACUTE EMBOLISM AND THOMBOS UNSP DEEP VEI 04/06/2019 LISS, MARIE N Ot Z79.899 OTHER PLANNING LEAD (CURRENT) DRUG THERAPY 04/06/2019 LISS, MARIE N Ot Z82.49 FAMILY HX OF ISCHEM HEART DIS AND OTH DI 04/11/2019 INEZ DODGE, DAMIEN Brown Ot M79.672 PAIN IN LEFT FOOT 04/11/2019 INEZ DODGE, DAMIEN Brown Ot M79.672 PAIN IN LEFT FOOT 04/27/2019 INEZ DODGE, DAMIEN Brown Ot M79.672 PAIN IN LEFT FOOT 05/08/2019 LISSMARIE N Ot I26.99 OTHER PULMONARY EMBOLISM WITHOUT ACUTE C 05/08/2019 LISSMARIE N Ot I82.431 ACUTE EMBOLISM AND THROMBOSIS OF RIGHT P 05/08/2019 LISSMARIE N Ot Z79.899 OTHER HALF-WAY (CURRENT) DRUG THERAPY 05/08/2019 LISSMARIE N Ot Z82.49 FAMILY HX OF ISCHEM HEART DIS AND OTH DI 05/08/2019 LISS BOBAN N Ot Z83.2 FAMILY HISTORY OF DIS OF THE BLD/BLD-FOR 05/17/2019 LISSRAMIROAN N Ot I26.99 OTHER PULMONARY EMBOLISM WITHOUT ACUTE C 05/17/2019 LISS BOBAMINAH N Ot I82.431 ACUTE EMBOLISM AND THROMBOSIS OF RIGHT P 05/17/2019 LISS, BOBAN N Ot Z79.899 OTHER PLANNING LEAD (CURRENT) DRUG THERAPY 05/17/2019 LISS BOBAN N Ot Z82.49 FAMILY HX OF ISCHEM HEART DIS AND OTH DI 05/17/2019 LISS, BOBAN N Ot Z83.2 FAMILY HISTORY OF DIS OF THE BLD/BLD-FOR 06/14/2019 LISS, MARIE N Ot I26.99 OTHER PULMONARY EMBOLISM WITHOUT ACUTE C 06/14/2019 LISSMARIE N Ot I82.431 ACUTE EMBOLISM AND THROMBOSIS OF RIGHT P 06/14/2019 LISSMARIE N Ot Z79.899 OTHER PLANNING LEAD (CURRENT) DRUG THERAPY 06/14/2019 LISSMARIE N Ot Z82.49 FAMILY HX OF ISCHEM HEART DIS AND OTH DI 06/14/2019 LISSMARIE N Ot Z83.2 FAMILY HISTORY OF DIS OF THE BLD/BLD-FOR 07/12/2019 LISSMARIE N Ot I26.99 OTHER PULMONARY EMBOLISM WITHOUT ACUTE C 07/12/2019 LISSMARIE N Ot I82.431 ACUTE EMBOLISM AND THROMBOSIS OF RIGHT P 07/12/2019 LISSMARIE N Ot Z79.899 OTHER PLANNING LEAD (CURRENT) DRUG THERAPY 07/12/2019 LISSMARIE N Ot Z82.49 FAMILY HX OF ISCHEM HEART DIS AND OTH DI 07/12/2019 LISSMARIE N Ot Z83.2 FAMILY HISTORY OF DIS OF THE BLD/BLD-FOR 07/30/2019 LISS, MARIE N Ot I26.99 OTHER PULMONARY EMBOLISM WITHOUT ACUTE C 07/30/2019 LISSMARIE N Ot I82.431 ACUTE EMBOLISM AND THROMBOSIS OF RIGHT P 07/30/2019 LISSMARIE N Ot Z79.899 OTHER HALF-WAY (CURRENT) DRUG THERAPY 07/30/2019 MARIE LEIJA N Ot Z82.49 FAMILY HX OF ISCHEM HEART DIS AND OTH DI 07/30/2019 MARIE LEIJA N Ot Z83.2 FAMILY HISTORY OF DIS OF THE BLD/BLD-FOR 08/01/2019 LISSMARIE N Ot I26.99 OTHER PULMONARY EMBOLISM WITHOUT ACUTE C 08/01/2019 LISSMARIE N Ot I82.431 ACUTE EMBOLISM AND THROMBOSIS OF RIGHT P 08/01/2019 LISSMARIE N Ot Z79.899 OTHER PLANNING LEAD (CURRENT) DRUG THERAPY 08/01/2019 LISSMARIE N Ot Z82.49 FAMILY HX OF ISCHEM HEART DIS AND OTH DI 08/01/2019 MARIE LEIJA Ot Z83.2 FAMILY HISTORY OF DIS OF THE BLD/BLD-FOR 08/23/2019 Ot I26.99 OTH ER PULMONARY EMBOLISM WITHOUT ACUTE C 08/23/2019 Ot I82.431 [place] EMBOLISM AND THROMBOSIS OF RIGHT P 08/23/2019 Ot Z79.899 OT HER PLANNING LEAD (CURRENT) DRUG THERAPY 08/23/2019 Ot Z82.49 FAM CRISTIN HX OF ISCHEM HEART DIS AND OTH DI 08/23/2019 Ot Z83.2 FAMI LY HISTORY OF DIS OF THE BLD/BLD-FOR Procedures There is no data. Results Test Result Range Complete blood count (CBC) with automate d white blood cell (WBC) differential - 12/04/18 16:20 Blood leukocytes automated count (number/volume) 9.2 10*3/uL 4.3-11.0 Blood erythrocytes automated count (number/volume) 4.79 10*6/uL 4.35-5.85 Venous blood hemoglobin measurement (mass/volume) 15.3 g/dL 13.3-17.7 Blood hematocrit (volume fraction) 44 % 40-54 Automated erythrocyte mean corpuscular volume 91 [ foz_us] 80-99 Automated erythrocyte mean corpuscular h emoglobin (mass per erythrocyte) 32 pg 25-34 Automated erythrocyte mean corpuscular h emoglobin concentration measurement (mass/volume) 35 g/dL 32-36 Automated erythrocyte distribution width ratio 12. 8 % 10.0- 14.5 Automated blood platelet count (count/volume) 328 10*3/uL 130-400 Automated blood platelet mean volume measurement 9.2 [foz_us] 7.4-10.4 Automated blood neutrophils/100 leukocytes 57 % 42-75 Automated blood lymphocytes/100 leukocytes 31 % 12-44 Blood monocytes/100 leukocytes 10 % 0-12 Automated blood eosinophils/100 leukocytes 2 % 0-10 Automated blood basophils/100 leukocytes 0 % 0-10 Blood neutrophils automated count (number/volume) 5.3 10*3 1.8-7.8 Blood lymphocytes automated count (number/volume) 2.9 10*3 1.0-4.0 Blood monocytes automated count (number/volume) 0. 9 10*3 0.0-1.0 Automated eosinophil count 0.2 10*3/uL 0 .0-0.3 Automated blood basophil count (count/volume) 0.0 10*3/uL 0.0-0.1 Comprehensive metabolic panel - 12/04/18 16:20 Serum or plasma sodium measurement (moles/volume) 139 mmol/L 135-145 Serum or plasma potassium measurement (moles/volume) 5.4 mmol/L 3.6-5.0 Serum or plasma chloride measurement (moles/volume) 107 mmol/L 98-107 Carbon dioxide 24 mmol/L 21-32 Serum or plasma anion gap determination (moles/volume) 8 mmol/L 5-14 Serum or plasma urea nitrogen measurement (mass/volume ) 15 mg/dL 7-18 Serum or plasma creatinine measurement (mass/volume) 1.19 mg/dL 0.60-1.30 Serum or plasma urea nitrogen/creatinine mass ratio 13 NRG Serum or plasma creatinine measurement w ith calculation of estimated glomerular filtration rate > NRG Serum or plasma glucose measurement (mass/volume) 95 mg/dL 70-105 Serum or plasma calcium measurement (mass/volume) 8.9 mg/dL 8.5-10.1 Serum or plasma total bilirubin measurement (mass/volu me) 0.4 mg/dL 0.1-1.0 Serum or plasma alkaline phosphatase sonal surement (enzymatic activity/volume) 109 U/L 40-136 Serum or plasma aspartate aminotransfera se measurement (enzymatic activity/volume) 47 U/L 5-34 Serum or plasma alanine aminotransferase measurement (enzymatic activity/volume) 25 U/L 0-55 Serum or plasma protein measurement (mass/volume) 8.0 g/dL 6.4-8.2 Serum or plasma albumin measurement (mass/volume) 4.1 g/dL 3.2-4.5 CALCIUM CORRECTED 8.8 mg/dL 8.5-10.1 Serum or plasma troponin i.cardiac measu rement (mass/volume) - 12/04/18 16:20 Serum or plasma troponin i.cardiac measurement (mass/v olume) < ng/mL <0.028 Complete blood count (CBC) with automate d white blood cell (WBC) differential - 12/15/18 20:55 Blood leukocytes automated count (number/volume) 8.5 10*3/uL 4.3-11.0 Blood erythrocytes automated count (number/volume) 4.95 10*6/uL 4.35-5.85 Venous blood hemoglobin measurement (mass/volume) 15.6 g/dL 13.3-17.7 Blood hematocrit (volume fraction) 45 % 40-54 Automated erythrocyte mean corpuscular volume 91 [ foz_us] 80-99 Automated erythrocyte mean corpuscular h emoglobin (mass per erythrocyte) 32 pg 25-34 Automated erythrocyte mean corpuscular h emoglobin concentration measurement (mass/volume) 35 g/dL 32-36 Automated erythrocyte distribution width ratio 12. 5 % 10.0- 14.5 Automated blood platelet count (count/volume) 215 10*3/uL 130-400 Automated blood platelet mean volume measurement 9.5 [foz_us] 7.4-10.4 Automated blood neutrophils/100 leukocytes 73 % 42-75 Automated blood lymphocytes/100 leukocytes 20 % 12-44 Blood monocytes/100 leukocytes 6 % 0-12 Automated blood eosinophils/100 leukocytes 1 % 0-10 Automated blood basophils/100 leukocytes 0 % 0-10 Blood neutrophils automated count (number/volume) 6.2 10*3 1.8-7.8 Blood lymphocytes automated count (number/volume) 1.7 10*3 1.0-4.0 Blood monocytes automated count (number/volume) 0. 5 10*3 0.0-1.0 Automated eosinophil count 0.1 10*3/uL 0 .0-0.3 Automated blood basophil count (count/volume) 0.0 10*3/uL 0.0-0.1 Comprehensive metabolic panel - 12/15/18 20:55 Serum or plasma sodium measurement (moles/volume) 139 mmol/L 135-145 Serum or plasma potassium measurement (moles/volume) 3.8 mmol/L 3.6-5.0 Serum or plasma chloride measurement (moles/volume) 105 mmol/L 98-107 Carbon dioxide 23 mmol/L 21-32 Serum or plasma anion gap determination (moles/volume) 11 mmol/L 5-14 Serum or plasma urea nitrogen measurement (mass/volume ) 12 mg/dL 7-18 Serum or plasma creatinine measurement (mass/volume) 1.10 mg/dL 0.60-1.30 Serum or plasma urea nitrogen/creatinine mass ratio 11 NRG Serum or plasma creatinine measurement w ith calculation of estimated glomerular filtration rate > NRG Serum or plasma glucose measurement (mass/volume) 103 mg/dL 70-105 Serum or plasma calcium measurement (mass/volume) 9.3 mg/dL 8.5-10.1 Serum or plasma total bilirubin measurement (mass/volu me) 0.5 mg/dL 0.1-1.0 Serum or plasma alkaline phosphatase sonal surement (enzymatic activity/volume) 114 U/L 40-136 Serum or plasma aspartate aminotransfera se measurement (enzymatic activity/volume) 24 U/L 5-34 Serum or plasma alanine aminotransferase measurement (enzymatic activity/volume) 26 U/L 0-55 Serum or plasma protein measurement (mass/volume) 7.2 g/dL 6.4-8.2 Serum or plasma albumin measurement (mass/volume) 4.2 g/dL 3.2-4.5 CALCIUM CORRECTED 9.1 mg/dL 8.5-10.1 Serum or plasma troponin i.cardiac measu rement (mass/volume) - 12/15/18 20:55 Serum or plasma troponin i.cardiac measurement (mass/v olume) < ng/mL <0.028 Capillary blood glucose measurement by g lucometer (mass/volume) - 12/15/18 21:45 Capillary blood glucose measurement by glucometer (mas s/volume) 105 mg/dL 70-110 Complete urinalysis with reflex to cultu re - 12/15/18 22:38 Urine color determination YELLOW NRG Urine clarity determination CLEAR NR G Urine pH measurement by test strip 8 5-9 Specific gravity of urine by test strip 1.015 1.016-1.022 Urine protein assay by test strip, semi-quantitative NEGATIVE NEGATIVE Urine glucose detection by automated test strip NE GATIVE NEGATIVE Erythrocytes detection in urine sediment by light micr oscopy NEGATIVE NEGATIVE Urine ketones detection by automated test strip NE GATIVE NEGATIVE Urine nitrite detection by test strip NEGATIVE NEGATIVE Urine total bilirubin detection by test strip NEGA TIVE NEGATIVE Urine urobilinogen measurement by automated test strip (mass/volume) NORMAL NORMAL Urine leukocyte esterase detection by dipstick NEG ATIVE NEGATIVE Automated urine sediment erythrocyte cou nt by microscopy (number/high power field) [HPF] NRG Automated urine sediment leukocyte count by microscopy (number/high power field) [HPF] NRG Bacteria detection in urine sediment by light microsco py NEGATIVE NRG Crystals detection in urine sediment by light microsco py NONE NRG Casts detection in urine sediment by light microscopy NONE NRG Mucus detection in urine sediment by light microscopy NEGATIVE NRG Complete urinalysis with reflex to culture NO NRG Complete blood count (CBC) with automate d white blood cell (WBC) differential - 01/23/19 15:20 Blood leukocytes automated count (number/volume) 6.9 10*3/uL 4.3-11.0 Blood erythrocytes automated count (number/volume) 4.62 10*6/uL 4.35-5.85 Venous blood hemoglobin measurement (mass/volume) 14.3 g/dL 13.3-17.7 Blood hematocrit (volume fraction) 42 % 40-54 Automated erythrocyte mean corpuscular volume 90 [ foz_us] 80-99 Automated erythrocyte mean corpuscular h emoglobin (mass per erythrocyte) 31 pg 25-34 Automated erythrocyte mean corpuscular h emoglobin concentration measurement (mass/volume) 34 g/dL 32-36 Automated erythrocyte distribution width ratio 12. 5 % 10.0- 14.5 Automated blood platelet count (count/volume) 195 10*3/uL 130-400 Automated blood platelet mean volume measurement 9.1 [foz_us] 7.4-10.4 Automated blood neutrophils/100 leukocytes 69 % 42-75 Automated blood lymphocytes/100 leukocytes 20 % 12-44 Blood monocytes/100 leukocytes 10 % 0-12 Automated blood eosinophils/100 leukocytes 0 % 0-10 Automated blood basophils/100 leukocytes 0 % 0-10 Blood neutrophils automated count (number/volume) 4.8 10*3 1.8-7.8 Blood lymphocytes automated count (number/volume) 1.4 10*3 1.0-4.0 Blood monocytes automated count (number/volume) 0. 7 10*3 0.0-1.0 Automated eosinophil count 0.0 10*3/uL 0 .0-0.3 Automated blood basophil count (count/volume) 0.0 10*3/uL 0.0-0.1 Complete urinalysis with reflex to cultu re - 01/23/19 15:20 Urine color determination YELLOW NRG Urine clarity determination CLEAR NR G Urine pH measurement by test strip 6.0 5-9 Specific gravity of urine by test strip 1.015 1.016-1.022 Urine protein assay by test strip, semi-quantitative NEGATIVE NEGATIVE Urine glucose detection by automated test strip NE GATIVE NEGATIVE Erythrocytes detection in urine sediment by light micr oscopy NEGATIVE NEGATIVE Urine ketones detection by automated test strip NE GATIVE NEGATIVE Urine nitrite detection by test strip NEGATIVE NEGATIVE Urine total bilirubin detection by test strip NEGA TIVE NEGATIVE Urine urobilinogen measurement by automated test strip (mass/volume) 0.2 mg/dL < = 1.0 Urine leukocyte esterase detection by dipstick NEG ATIVE NEGATIVE Automated urine sediment erythrocyte cou nt by microscopy (number/high power field) NONE NRG Automated urine sediment leukocyte count by microscopy (number/high power field) NONE NRG Bacteria detection in urine sediment by light microsco py TRACE NRG Squamous epithelial cells detection in u rine sediment by light microscopy RARE NRG Crystals detection in urine sediment by light microsco py NONE NRG Casts detection in urine sediment by light microscopy NONE NRG Mucus detection in urine sediment by light microscopy SMALL NRG Complete urinalysis with reflex to culture NO NRG PT panel in platelet poor plasma by coag ulation assay - 01/23/19 15:20 Prothrombin time (PT) in platelet poor plasma by coagu lation assay 16.1 s 12.2-14.7 INR in platelet poor plasma or blood by coagulation as say 1.2 0.8-1.4 Activated partial thromboplastin time (a PTT) in platelet poor plasma bycoagulation assay - 01/23/19 15:20 Activated partial thromboplastin time (a PTT) in platelet poor plasma bycoagulation assay 30 s 24-35 Comprehensive metabolic panel - 01/23/19 15:20 Serum or plasma sodium measurement (moles/volume) 138 mmol/L 135-145 Serum or plasma potassium measurement (moles/volume) 3.9 mmol/L 3.6-5.0 Serum or plasma chloride measurement (moles/volume) 106 mmol/L 98-107 Carbon dioxide 23 mmol/L 21-32 Serum or plasma anion gap determination (moles/volume) 9 mmol/L 5-14 Serum or plasma urea nitrogen measurement (mass/volume ) 12 mg/dL 7-18 Serum or plasma creatinine measurement (mass/volume) 1.22 mg/dL 0.60-1.30 Serum or plasma urea nitrogen/creatinine mass ratio 10 NRG Serum or plasma creatinine measurement w ith calculation of estimated glomerular filtration rate > NRG Serum or plasma glucose measurement (mass/volume) 123 mg/dL 70-105 Serum or plasma calcium measurement (mass/volume) 9.0 mg/dL 8.5-10.1 Serum or plasma total bilirubin measurement (mass/volu me) 0.7 mg/dL 0.1-1.0 Serum or plasma alkaline phosphatase sonal surement (enzymatic activity/volume) 73 U/L 40-136 Serum or plasma aspartate aminotransfera se measurement (enzymatic activity/volume) 20 U/L 5-34 Serum or plasma alanine aminotransferase measurement (enzymatic activity/volume) 22 U/L 0-55 Serum or plasma protein measurement (mass/volume) 6.2 g/dL 6.4-8.2 Serum or plasma albumin measurement (mass/volume) 3.8 g/dL 3.2-4.5 CALCIUM CORRECTED 9.2 mg/dL 8.5-10.1 Magnesium - 01/23/19 15:20 Magnesium 1.9 mg/dL 1.6-2.4 Myoglobin, serum - 01/23/19 15:20 Myoglobin, serum 43.1 ng/mL 10.0-92.0 Serum or plasma amylase measurement (enz ymatic activity/volume) - 01/23/19 15:20 Serum or plasma amylase measurement (enzymatic activit y/volume) 79 U/L 25-125 Lipase - 01/23/19 15:20 Lipase 24 U/L 8-78 Serum or plasma troponin i.cardiac measu rement (mass/volume) - 01/23/19 15:20 Serum or plasma troponin i.cardiac measurement (mass/v olume) < ng/mL <0.028 Encounters ACCT No. Visit Date/Time Discharge Status Pt. Type Provider Facility Loc./Unit Complaint [id number] 08/27/2019 05:30:00 09:48:00 DIS Outpatient GENE EMERSON MD [facility] PREOP COLONOSCOPY [id number] 08/22/2019 09:30:00 23:59:59 CLS Preadmit GENE EMERSON MD [facility] ENDO SCREENING/HX POLYPS [id number] 06/29/2019 10:58:00 00:01:00 DIS Outpatient MARIE LEIJA [facility] ONC [id number] 04/10/2019 11:46:00 23:59:59 CLS Outpatient DAMIEN WILEY MD [facility] RAD HEEL PAIN [id number] 01/05/2019 10:09:00 00:01:00 DIS Outpatient MARIE LEIJA V [facility] ONC [id number] 01/23/2019 14:54:00 17:11:00 DIS Emergency HIRAL CHAN [facility] ER WEAKNESS/NAUSEA [id number] 12/15/2018 20:13:00 00:43:00 DIS Emergency ROSHNI VIDALES [facility] ER BODYACHES [id number] 12/04/2018 16:19:00 18:24:00 DIS Emergency SHANE LEHMAN MD [facility] ER DIZZY [id number] 11/27/2018 14:10:00 23:59:59 CLS Outpatient DAMIEN WILEY MD [facility] RAD PAIN AND SWELLING LE, R T [id number] 09/01/2017 18:40:00 19:37:00 DIS Emergency WILFREDO DO, JESSY K Vi a [facility] ER BACK/ RIB PAIN R SIDE A FTER FALL [id number] 04/02/2016 14:15:00 017 23:59:59 CLS Outpatient DAMIEN WILEY MD [facility] RAD MEDIAL POSTERIOR KNEE PAIN [id number] 09/05/2014 09:57:00 015 23:59:59 CLS Outpatient DAMIEN WILEY MD [facility] RAD PERSISTENT COUGH PRODUC TIVE [id number] 07/31/2019 00:00:00 Document Registration [id number] 09/05/2014 09:57:00 Document Registration
--- NOTE | 2019-08-29 10:50 | Conscious Sedation/ASA ---
Conscious Sedation Pre-Proced Time 10:30 ASA Score 2 For ASA 3 and 4: Consider anesthesia and medical clearance. Also, for patients with a history of failed moderate sedation consider anesthesia. Airway Lungs Heart ASA score ASA 1: a normal healthy patient ASA 2: a patient with a mild systemic disease (mid diabetes, controlled hypertension, obesity ASA 3: a patient with a severe systemic disease that limits activity (angina, COPD, prior Myocardial infarction) ASA 4: a patient with an incapacitating disease that is a constant threat to life (CHF, renal failure) ASA 5: a moribund patient not expected to survive 24 hrs. (ruptured aneurysm) ASA 6: a declared brain- patient whose organs are being harvested. For emergent operations, add the letter E after the classification Mallampati Classification Grade 2 Sedation Plan Analgesia, Amnesia, Plan communicated to team members, Discussed options with patient/fam, Discussed risks with patient/fam The patient is an appropriate candidate to undergo the planned procedure, sedation, and anesthesia. The patient immediately re-assessed prior to indication. GENE EMERSON MD Aug 29, 2019 10:50
--- NOTE | 2019-08-29 10:51 | Progress Note-Pre Operative ---
Pre-Operative Progress Note H&P Reviewed The H&P was reviewed, patient examined and no changes noted. Date Seen by Provider: Aug 29, 2019 Time Seen by Provider: 10:30 Date H&P Reviewed: Aug 29, 2019 Time H&P Reviewed: 10:30 Pre-Operative Diagnosis: screening colo, family hx GENE EMERSON MD Aug 29, 2019 10:51
--- NOTE | 2019-08-29 10:52 | Discharge Inst-Surgical ---
D/C Lap Instructions-IDANIA Follow Up 5 years Activity as tolerated High Fiber Diet 25g or more per day Avoid Alcohol, Caffeine, Spicy Martinez and Acid foods. Drink 64 fluid oz or more of fluids per day. Symptoms to Report: Fever over 101 degree F, Nausea/Vomiting If any problems/questions: Contact your physician or go to Emergency Room GENE EMERSON MD Aug 29, 2019 10:52
[2019-08-29] MEDS ORDERED: morphine INJ 10 MG/ML 1ML (SYR OR VIAL) IVP PRN ×2 (11:00)
[2019-08-29] MEDS ORDERED: ONDANSETRON 4 MG/2 ML (SDV) Z0FRAN IVP PRN (11:00)
[2019-08-29] MEDS ORDERED: HYDROcodone/APAP 5 MG/325 MG (LORTAB) TAB PO PRN (11:00)
[2019-08-29] MEDS ORDERED: ACETAMINOPHEN 325 MG TABLET PO PRN (11:00)
[2019-08-29] MEDS ORDERED: fentaNYL INJECTION 100 MCG/2 ML AMP ONE ×2 (11:21→11:52)
[2019-08-29] MEDS ORDERED: LIDOCAINE JELLY 2% 6 ML SYRINGE ONE (11:21)
[2019-08-29] MEDS ORDERED: MIDAZOLAM 5 MG/5 ML (VERSED) VIAL ONE ×2 (11:21→11:40)
[2019-08-29] MEDS: MIDAZOLAM 5 MG/5 ML (VERSED) VIAL IV PRN ×5 (11:30→11:50)
[2019-08-29] MEDS ORDERED: MIDAZOLAM 2 MG/2 ML (VERSED) VIAL ONE (11:47)
--- NOTE | 2019-08-29 12:13 | Progress Note-Post Operative ---
Post-Operative Progess Note Surgeon (s)/High Value Associate (s) Surgeon GENE EMERSON MD High Value Associate: none Pre-Operative Diagnosis screening colo, family hx Post-Operative Diagnosis chronic stage 2 ext and int hemorrhoids, small polyp splenic flexure(2mm). Procedure & Operative Findings Date of Procedure 08/29/19 Procedure Performed/Findings colonoscopy with polypectomy Anesthesia Type cs Estimated Blood Loss Estimated blood loss (mL): minimal Specimens/Packing Specimens Removed splennic flex polyp GENE EMERSON MD Aug 29, 2019 12:13
--- NOTE | 2019-08-29 21:59 | OPERATIVE REPORT ---
DATE OF SERVICE: 08/29/2019 ATTENDING PRIMARY CARE PHYSICIAN: Dr. Gabriel Murphy. PREOPERATIVE DIAGNOSIS: Screening colonoscopy with family history of colon cancer. POSTOPERATIVE DIAGNOSES: Mild chronic stage II external and internal hemorrhoids, small polyp of the splenic flexure 2 mm in size. PROCEDURE: Colonoscopy with polypectomy. SURGEON: Gene Emerson MD ANESTHESIA: Conscious sedation. ESTIMATED BLOOD LOSS: Minimal. FINDINGS: Mild chronic stage II external and internal hemorrhoids, small polyp of the splenic flexure 2 mm in size. DISPOSITION: The patient tolerated the procedure well. INDICATIONS: The patient is a 59-year-old male referred over to us for screening colonoscopy. He reports his last colonoscopy was approximately 8 years ago. He has had a total of three colonoscopies in the past and states that on one of them, he was found to have two polyps, which were benign and found to be benign. He states that he is otherwise doing well, does not report any major issues with diarrhea nor constipation as well as no red blood per rectum nor any dark tarry stools. He does have a family history of colon cancer with his mother having the disease. DESCRIPTION OF PROCEDURE: The patient was brought to the endoscopy suite, laid in the left lateral decubitus position. After adequate IV pain and sedated medications and conscious sedation anesthesia, a digital rectal examination was performed. Mild chronic stage II external and internal hemorrhoids were identified, which were not actively edematous nor inflamed and no bleeding. Prostate gland was palpable and appeared normal. The endoscope was then intubated to the anus and rectum gently insufflated. The endoscope was then advanced to the valves of [place] of the rectum with no polyps or any neoplasms identified. Through the sigmoid colon, there were no diverticulosis identified. We then proceeded to the splenic flexure where a small polyp approximately 2 mm in size identified. This was biopsied and destroyed using forceps and electrocautery. The endoscope was then advanced through the remainder of the transverse and ascending colon to the cecum. These segments were normal. The endoscope was then slowly withdrawn while taking a second look and suctioning of residual air with no additional findings. The patient tolerated the procedure well. We will recommend continued medical management with high fiber diet with at least 30 grams of fiber daily as well as significant amounts of water to promote soft stools on a daily basis. With his family history of colon cancer, we will also recommend a followup colonoscopy in approximately 5 years. Bobby ID: [id number] DocumentID: [id number] Dictated Date: 08/29/2019 12:13:37 Mobile Product Manager Date: 08/29/2019 21:58:28 Dictated By: GENE EMERSON MD
== END 2019-08-29 13:25 | disposition home or self-care (01) ==
LOC: ENDO 10:01
PROVIDERS: ATTEND Surgery
DX: Z12.11 Encounter for screening for malignant neoplasm of colon (principal); D12.3 Benign neoplasm of transverse colon; K64.1 Second degree hemorrhoids; F41.9 Anxiety disorder, unspecified; Z80.0 Family history of malignant neoplasm of digestive organs; Z86.718 Personal history of other venous thrombosis and embolism; Z86.711 Personal history of pulmonary embolism; Z87.891 Personal history of nicotine dependence; Z86.010 Personal history of colon polyps; Z79.899 Other long term (current) drug therapy; Z79.82 Long term (current) use of aspirin
CPT/HCPCS: 88305

== ENCOUNTER → 2021-03-27 | Outpatient (CLI) | payer BC ==
[~2021-03-27] MED LIST changes: +CYCL10TA25 PO; -CYCL10TA9 PO
== END ==
LOC: CARD 14:30
PROVIDERS: ATTEND Family Medicine
DX: I51.7 Cardiomegaly (principal); I35.1 Nonrheumatic aortic (valve) insufficiency; Z86.718 Personal history of other venous thrombosis and embolism
CPT/HCPCS: 93306

== ENCOUNTER 2021-09-01 14:30 | Emergency (ER) | payer BC ==
[~2021-09-01] VITALS: Ht 177.8 cm; Wt 97.5 kg
--- NOTE | 2021-09-01 15:16 | ED Lower Extremity ---
General Chief Complaint: Lower Extremity Stated Complaint: L LEG REDNESS/PAIN,HARD TO TOUCH,HX BLOOD CLOTS Source: patient Exam Limitations: no limitations History of Present Illness Date Seen by Provider: Sep 01, 2021 Time Seen by Provider: 15:16 Allergies and Home Medications Allergies Coded Allergies: No Known Drug Allergies (Unverified , 08/23/19) Patient Home Medication List Sertraline HCl (Zoloft) 50 Mg Tablet, 50 MG PO DAILY, (Reported) Entered as Reported by: SHANTAL DRISCOLL on 08/23/19 1145 Past Ppbefqw-Rpqvzv-Ctjjlv Hx Patient Social History Tobacco Use?: No Smoking Status: Never a Smoker Substance use?: No Alcohol Use?: Yes Alcohol type: Beer Alcohol Frequency: Couple times a week Pt feels they are or have been: No Immunizations Up To Date Tetanus Booster (TDap): Unknown Influenza Vaccine Up-to-Date: No; Not Current Seasonal Allergies Seasonal Allergies: No Past Medical History Surgeries: No Respiratory: Yes Pulmonary Embolism Cardiac: Yes (PE) Deep Vein Thrombosis Neurological: No Sexually Transmitted Disease: No HIV/AIDS: No Genitourinary: No Gastrointestinal: No Gastroesophageal Reflux Musculoskeletal: No Endocrine: No HEENT: No (GLASSES) Loss of Vision: Denies Hearing Impairment: Denies Cancer: No Psychosocial: Yes Anxiety Integumentary: No Blood Disorders: No Adverse Reaction/Blood Tranf: No (N/A) Family Medical History No Pertinent Family Hx Physical Exam Vital Signs Vital Signs - First Documented 09/01/21 14:41 Temp 36.7 Pulse 71 Resp 16 B/P (MAP) 143/78 (99) Pulse Ox 97 O2 Delivery Room Air Capillary Refill : Height, Weight, BMI Height: 5'10.00" Weight: 200lbs. 0.0oz. [id number]; 30.45 BMI Method:Stated Progress/Results/Core Measures Results/Orders Lab Results Laboratory Tests Test 09/01/21 14:53 Range/Units White Blood Count 5.7 4.3-11.0 10^3/uL Red Blood Count 4.37 4.30-5.52 10^6/uL Hemoglobin 14.1 13.3-17.7 g/dL Hematocrit 40 40-54 % Mean Corpuscular Volume 92 80-99 fL Mean Corpuscular Hemoglobin 32 25-34 pg Mean Corpuscular Hemoglobin Concent 35 32-36 g/dL Red Cell Distribution Width 12.6 10.0-14.5 % Platelet Count 177 130-400 10^3/uL Mean Platelet Volume 9.0 9.0-12.2 fL Immature Granulocyte % (Auto) 0 % Neutrophils (%) (Auto) 51 42-75 % Lymphocytes (%) (Auto) 31 12-44 % Monocytes (%) (Auto) 12 0-12 % Eosinophils (%) (Auto) 4 0-10 % Basophils (%) (Auto) 1 0-10 % Neutrophils # (Auto) 3.0 1.8-7.8 X 10^3 Lymphocytes # (Auto) 1.8 1.0-4.0 X 10^3 Monocytes # (Auto) 0.7 0.0-1.0 X 10^3 Eosinophils # (Auto) 0.3 0.0-0.3 10^3/uL Basophils # (Auto) 0.0 0.0-0.1 10^3/uL Immature Granulocyte # (Auto) 0.0 0.0-0.1 10^3/uL Sodium Level 138 135-145 MMOL/L Potassium Level 4.2 3.6-5.0 MMOL/L Chloride Level 107 98-107 MMOL/L Carbon Dioxide Level 22 21-32 MMOL/L Anion Gap 9 5-14 MMOL/L Blood Urea Nitrogen 15 7-18 MG/DL Creatinine 0.99 0.60-1.30 MG/DL Estimat Glomerular Filtration Rate 87 BUN/Creatinine Ratio 15 Glucose Level 96 70-105 MG/DL Calcium Level 8.8 8.5-10.1 MG/DL Corrected Calcium 9.0 8.5-10.1 MG/DL Total Bilirubin 0.5 0.1-1.0 MG/DL Aspartate Amino Transf (AST/SGOT) 26 5-34 U/L Alanine Aminotransferase (ALT/SGPT) 26 0-55 U/L Alkaline Phosphatase 96 40-136 U/L C-Reactive Protein High Sensitivity 0.27 0.00-0.50 MG/DL Total Protein 6.3 L 6.4-8.2 GM/DL Albumin 3.7 3.2-4.5 GM/DL My Orders Orders - KATHY ORELLANA APRN Us Venous Lower Ext Lt (09/01/21 15:12) Cbc With Automated Diff (09/01/21 15:12) Comprehensive Metabolic Panel (09/01/21 15:12) Hs C Reactive Protein (09/01/21 15:12) Ed Iv/Invasive Line Start (09/01/21 15:12) Vital Signs/I&O 09/01/21 14:41 Temp 36.7 Pulse 71 Resp 16 B/P (MAP) 143/78 (99) Pulse Ox 97 O2 Delivery Room Air Departure Impression Primary Impression: Phlebitis Disposition: HOME, SELF-CARE Condition: Improved Departure-Patient Inst. Decision time for Depature: 16:09 Referrals: DAMIEN WILEY MD (PCP/Family) Primary Care Physician Patient Instructions: Superficial Phlebitis, Phlebitis (DC) Add. Discharge Instructions: Plan: 1. Call Dr. Wiley for close follow up. You may benefit from short course of oral anticoagulants. 2. Warm compress to affected leg a few times per day 20 minutes at a time. 3. Advil, Aleve, or Ibuprofen per package. You can take Ibuprofen 600mg by mouth every 6 hours as needed for pain/discomfort. 4. Keep your leg elevated as much as possible when sitting. Avoid sitting for long periods of time. 5. Return for any new, concerning, or worsening symptoms. All discharge instructions reviewed with patient and/or family. Voiced understanding. KATHY ORELLANA OVERLAY PLASTICIAN Sep 01, 2021 15:16
[2021-09-01 15:20] LABS: ALBUMIN 3.7 GM/DL (3.2-4.5); POTASSIUM 4.2 MMOL/L (3.6-5.0)
[2021-09-01 15:22] LABS: CALCIUM 8.8 MG/DL (8.5-10.1)
[2021-09-01 15:23] LABS: TOTAL PROTEIN 6.3 GM/DL (6.4-8.2)
[2021-09-01 15:25] LABS: BILIRUBIN,TOTAL 0.5 MG/DL (0.1-1.0)
[2021-09-01 15:26] LABS: BASOPHILS % (AUTO) 1 % (0-10); EOSINOPHILS # (AUTO) 0.3 10^3/uL (0.0-0.3); EOSINOPHILS % (AUTO) 4 % (0-10); HEMATOCRIT 40 % (40-54); HEMOGLOBIN 14.1 g/dL (13.3-17.7); LYMPHOCYTES # (AUTO) 1.8 X 10^3 (1.0-4.0); LYMPHOCYTES % (AUTO) 31 % (12-44); MEAN CORPUSCULAR HEMOGLOBIN 32 pg (25-34); MEAN CORPUSCULAR HGB CONC 35 g/dL (32-36); MEAN CORPUSCULAR VOLUME 92 fL (80-99); MONOCYTES # (AUTO) 0.7 X 10^3 (0.0-1.0); MONOCYTES % (AUTO) 12 % (0-12); NEUTROPHILS % (AUTO) 51 % (42-75); PLATELET COUNT 177 10^3/uL (130-400); WHITE BLOOD COUNT 5.7 10^3/uL (4.3-11.0)
[2021-09-01 15:27] LABS: CREATININE SERUM 0.99 MG/DL (0.60-1.30)
--- NOTE | 2021-09-01 15:55 | Diagnostic Imaging Report ---
INDICATION: Left leg pain, varices. TECHNIQUE: Multiple real-time grayscale images were obtained over the left lower extremity in various projections, bilaterally. Additional duplex Doppler and color Doppler images were also obtained. CORRELATION STUDY: None. FINDINGS: Color and grayscale sonographic images demonstrate no intraluminal defect within the visualized portion of the common femoral, superficial femoral and/or popliteal veins to suggest thrombus formation. These vessels demonstrate normal response to compression and augmentation. Findings are positive for occlusive thrombus within the superficial veins. This involves the peripheral aspect of the lesser saphenous vein and extends more centrally through the greater saphenous vein. IMPRESSION: 1. Negative for deep venous thrombosis of the left leg. 2. Findings positive for rather extensive thrombus throughout the greater and lesser saphenous veins. Findings were relayed by the water purifier at time of imaging. Dictated by: Dictated on workstation # [id number]
[2021-09-01 16:59] VITALS: BP 132/81
== END 2021-09-01 17:06 | disposition home or self-care (01) ==
LOC: EDUNIT# 14:30 → ER 14:32
DX: I80.02 Phlebitis and thrombophlebitis of superficial vessels of left lower extremity (principal); Z86.711 Personal history of pulmonary embolism; Z86.718 Personal history of other venous thrombosis and embolism
CPT/HCPCS: 36415; 80053; 85025; 86141

== ENCOUNTER → 2022-02-05 | Outpatient (CLI) | payer BC ==
--- NOTE | 2022-02-05 12:31 | Diagnostic Imaging Report ---
PROCEDURE: US left lower extremity venous. TECHNIQUE: Multiple real-time grayscale images were obtained over the left lower extremity in various projections. Additional duplex Doppler and color Doppler images were also obtained. INDICATION: Left leg pain. There is no evidence of left lower extremity DVT. Left lower extremity deep venous system shows normal compressibility with normal response to augmentation and Valsalva. There does appear to be clot within the greater saphenous vein as well as some clot in the lesser saphenous vein. IMPRESSION: 1. No evidence of left lower extremity DVT. 2. Thrombus within the greater saphenous and lesser saphenous vein consistent with superficial thrombophlebitis. Dictated by: Dictated on workstation # [id number]
== END ==
LOC: RAD 09:47
DX: M79.605 Pain in left leg (principal)

== ENCOUNTER → 2022-04-05 | Outpatient (CLI) | payer BC ==
--- NOTE | 2022-04-05 09:12 | Diagnostic Imaging Report ---
PROCEDURE: US right lower extremity venous. TECHNIQUE: Multiple real-time grayscale images were obtained over the right lower extremity in various projections. Additional spectral analysis and color Doppler duplex images were also obtained. INDICATION: Right leg pain The veins of the right leg have good color filling and compressibility. There is phasic flow and a normal response to augmentation. IMPRESSION: Negative venous Doppler right leg. Dictated by: Dictated on workstation # [id number]
== END ==
LOC: RAD 03-17 08:00
PROVIDERS: ATTEND Surgery
DX: M79.604 Pain in right leg (principal); Z86.718 Personal history of other venous thrombosis and embolism